=== PATIENT | female | born 1950 | race Caucasian/White ===

== ENCOUNTER 2022-10-25 08:37 | Outpatient (OUT) | payer MEDICARE, SELFPAY ==
[2022-10-25 11:03] LABS: Anion Gap 14.6; BUN Creatinine Ratio 14.5; Calcium 9.1 mg/dL (8.5-10.1); Carbon Dioxide 26.2 mmol/L (21.0-32.0); Chloride 102 mmol/L (98-107); Chol HDL Ratio 3.7; Cholesterol 160 mg/dL (<=200); Estimated GFR (African America >60 (>=60); Estimated GFR (Non-African Ame >60 (>=60); Glucose 114 mg/dL (74-106); HDL Cholesterol 43 mg/dL (40-60); Potassium 3.8 mmol/L (3.5-5.1); Sodium 139 mmol/L (136-145); Triglycerides 154 mg/dL (<=150); VLDL CHOLESTEROL 30.8 mg/dL
== END 2022-10-25 08:38 ==
LOC: LAB 08:38
PROVIDERS: Nurse Practitioner Acute Care
DX: I25.10 Atherosclerotic heart disease of native coronary artery without angina pectoris (principal)
CPT/HCPCS: 36415; 80048; 80061

== ENCOUNTER 2023-03-07 09:18 | Outpatient (OUT) | payer MEDICARE, SELFPAY ==
[2023-03-07 09:55] LABS: Anion Gap 10.8; BUN Creatinine Ratio 12.9; Calcium 8.6 mg/dL (8.5-10.1); Carbon Dioxide 28.4 mmol/L (21.0-32.0); Chloride 103 mmol/L (98-107); Estimated GFR (African America >60 (>=60); Estimated GFR (Non-African Ame >60 (>=60); Glucose 143 mg/dL (74-106); Potassium 4.2 mmol/L (3.5-5.1); Sodium 138 mmol/L (136-145)
== END 2023-03-07 09:19 | disposition home or self-care (01) ==
LOC: LAB 09:20
PROVIDERS: Visit Provider Internal Medicine Cardiovascular Disease
DX: I50.41 Acute combined systolic (congestive) and diastolic (congestive) heart failure (principal)
CPT/HCPCS: 36415; 80048

== ENCOUNTER 2023-03-28 07:06 | Outpatient (RCR) | payer MEDICARE, SELFPAY ==
--- NOTE | 2022-11-05 | CR1_ITS ---
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
--- NOTE | 2022-12-05 13:05 | CR1_ITS ---
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
--- NOTE | 2023-01-01 12:42 | CR1_ITS ---
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
--- NOTE | 2023-01-28 14:36 | CR1_ITS ---
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
--- NOTE | 2023-02-25 08:17 | CR1_ITS ---
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
== END 2023-03-28 12:58 | disposition home or self-care (01) ==
LOC: CR 07:06
DX: I50.9 Heart failure, unspecified (principal)
CPT/HCPCS: 93797; 93798

== ENCOUNTER 2023-03-28 09:56 | Outpatient (OUT) | payer MEDICARE, SELFPAY ==
--- NOTE | 2023-03-28 10:38 | CA_ITS ---
Patient Name: MEDARDO CORONA MR#: [id number] : 1950 Exam Date: 03/28/2023 Ordering Doctor: MADDISON LEMUS ECHOCARDIOGRAM REPORT PROCEDURE: CA ECHO DOPPLER COMPLETE INDICATIONS: Congestive heart failure, h/o myocardial infarct, stent, smoker, hypertension COMPARISON: None. DESCRIPTION: COMPLETE ECHOCARDIOGRAM Real-time transthoracic echocardiography with 2D, M-mode, spectral and color flow Doppler performed. QUALITY: Technical quality was good. LEFT VENTRICLE: Normal chamber size. Borderline left ventricular hypertrophy. LV EF: Global left ventricular systolic function is normal; visually estimated ejection fraction is 55 to 60%. No obvious regional wall motion abnormalities. DIASTOLIC: Unable to assess diastolic function. ATRIAL SEPTUM: Visually appears intact. LEFT ATRIUM: Normal chamber size. RIGHT ATRIUM: Normal chamber size. RIGHT VENTRICLE: Normal chamber size. Normal right ventricular systolic function. TRICUSPID VALVE: Normal mobility and thickness. No regurgitation. Unable to assess right-sided pressures due to lack of measurable tricuspid regurgitation. MITRAL VALVE: Normal mobility and thickness. No evidence of mitral valve stenosis. There is no mitral annular calcification. Trivial mitral regurgitation. AORTIC VALVE: Normal trileaflet appearance. No visible sclerosis. Normal leaflet mobility. No evidence of aortic valve stenosis. No aortic regurgitation. AORTIC ROOT: Normal diameter and appearance. PULMONIC VALVE: Not well visualized. No stenosis. No regurgitation. PERICARDIUM: Anterior free space; trivial effusion versus fat pad. IVC: Collapses with inspirations. CONCLUSION: 1. Global left ventricular systolic function is normal; visually estimated ejection fraction is 55 to 60% 2. Left ventricular wall thickness is increased 3. The right ventricle is normal in size and systolic function 4. Unable to assess diastolic function 5. No significant valvular abnormalities 6. Anterior free space; trivial effusion versus fat pad Adult Echocardiography Procedure Report Left Ventricle LVEDD (3.7 - 5.6 cm): 3.94 cm LVESD (2.2 - 4.0 cm): 2.77 cm LVIVS thickness (0.6 - 1.2 cm): 0.97 cm LVPW thickness (0.5 - 1.0 cm): 1.11 cm e': 0.08 m/s E - e': 4.40 LVOT Max Gradient: 1.32 mm[Hg] LVOT Area (cm2): 0.58 m/s Peak Velocity (LVOT): 0.58 m/s LVOT Diameter 1.96 cm Left Atrium LA Volume Index (2D A2C): 35.24 ml/m2 Left Atrium Systolic Dimension: 2.88 cm Mitral Valve MV E to A Ratio: 0.51, 0.55 Mitral Valve A-Wave Peak Velocity: 0.64 m/s Mitral Valve E-Wave Peak Velocity: 0.34 m/s Right Ventricle Aorta AO Root Diam: 3.73 cm Ascending Ao Diam: 2.96 cm Aortic Valve AoV Area (Peak Willi): 1.88 cm2, 1.88 cm2 Peak Velocity(Antegrade Flow): 0.93 m/s Peak Gradient(Antegrade Flow): 3.43 mm[Hg] Tricuspid Valve Pulmonic Valve Peak Velocity: 0.67 m/s Peak Gradient: 1.97 mm[Hg], 1.60 mm[Hg] Right Atrium Right Atrium Systolic Pressure: 22.32 ml, 22.32 ml Dictated by: Maren Sharma M.D. on 03/31/2023 at 17:15 Approved by: Maren Sharma M.D. on 03/31/2023 at 17:21
== END 2023-03-28 09:57 | disposition home or self-care (01) ==
LOC: CARD 09:56
PROVIDERS: Visit Provider Internal Medicine Cardiovascular Disease
DX: I50.41 Acute combined systolic (congestive) and diastolic (congestive) heart failure (principal)
CPT/HCPCS: 93306

== ENCOUNTER 2024-01-14 09:59 | Outpatient (OUT) | payer MEDICARE, SELFPAY ==
--- NOTE | 2024-01-14 10:01 | VEIN_ITS ---
The [address] [address] Patient Name: MEDARDO CORONA MRN: [id number] date: 1950 Sex: F Assigned Patient Location: Current Patient Location: Accession/Order Number: [id number] Exam Date: 01/14/2024 10:02 Report Date: 01/14/2024 21:13 At the request of: MADDISON LEMUS Procedure: VC SEGMENTAL PRESSURES EXAM: VC SEGMENTAL PRESSURES HISTORY: I73.9 Left leg pain COMPARISON: None. TECHNIQUE: Resting ABIs and segmental limb pressures FINDINGS: Right resting ALONA normal at 1.1. Left resting ALONA in the moderate claudication range 0.62. There is a pressure gradient from the left upper thigh cuff to the brachial cuff suggesting iliac disease. VEIN/VC SEGMENTAL PRESSURES IMPRESSION: 1. 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 2. Normal resting ABIs on the right with no pressure gradients. Electronically authenticated by: Kanchan FALK Date: 01/14/2024 21:13
== END 2024-01-14 10:00 | disposition home or self-care (01) ==
LOC: VC 09:59
PROVIDERS: Visit Provider Internal Medicine Cardiovascular Disease
DX: I73.9 Peripheral vascular disease, unspecified (principal)
CPT/HCPCS: 93923

== ENCOUNTER 2024-05-07 07:10 | Outpatient (RCR) | payer MEDICARE, SELFPAY ==
--- NOTE | 2024-05-13 10:15 | PC.NURSE ---
Called to outreach patient as she has not been seen in [facility] in a few weeks. Patient will be discharged on 05-17-24 due to her allotted amount of time of 12 weeks from admission. A voicemail was left with this information for her.
== END 2024-05-18 12:07 | disposition home or self-care (01) ==
LOC: CR 07:10
PROVIDERS: Visit Provider Internal Medicine Cardiovascular Disease
DX: I70.213 Atherosclerosis of native arteries of extremities with intermittent claudication, bilateral legs (principal)
CPT/HCPCS: 93668

== ENCOUNTER 2024-05-20 11:31 | Outpatient (RCR) | payer MEDICARE, SELFPAY | END 2024-08-06 13:51 | disposition home or self-care (01) | LOC: CR 11:31 | PROVIDERS: Visit Provider Internal Medicine Cardiovascular Disease | DX: I70.213 Atherosclerosis of native arteries of extremities with intermittent claudication, bilateral legs (principal) ==

== ENCOUNTER 2024-07-12 09:07 | Outpatient (OUT) | payer MEDICARE, SELFPAY ==
--- OUTSIDE RECORDS SUMMARY | 2024-07-12 09:30 | XMS_ITS | CCD ---
Author Organization [facility] Inform ion Partnership [facility] Care Team Providers Care Catalyst Manufacturing Operator Name Role Phone Savanna Carter Unavailable Unavailable Unavailable Sjeal Lucas Admitting Unavailable Sejal Lucas Attending Unavailable Savanna Caretr Primary Care UnavailSejal Mendoza Attending Unavailable Sejal Lucas Admitting Unavailable Savanna Carter Primary Care UnavailSHAIKH Fidelia Phipps Admitting Unavailable ABEL ., DR SANTANA Consulting Unavailable SAVANNA CARTER Primary Care Unavailable SHAIKH Fidelia CARROLL Attending Unavailable DR TREY DWYER Consulting Unavailable PAY ., DR HERNANDEZ Consulting Unavailable SHAIKH Fidelia CARROLL Consulting Unavailable LUIS ENRIQUE ARREOLA Consulting Unavailable CROW SHIELDS Consulting Unavailable AMENA HUITRON Consulting Unavailable LILI ERNANDEZ Consulting Unavailable JANES .WALI Consulting Unavailable ADRIANA DAMIAN Consulting Unavailable SAVANNA CARTER Primary Care Unavailable KARL, DR POLANCO Admitting Unavailable KARL, DR POLANCO Attending Unavailable MADDISON LEMUS Attending Unavailable JACKIE MORRIS Attending Unavailable MADDISON LEMUS Attending Unavailable Allergies Allergy Classification Reported Allergen(s) Allergy Type Date of Onset Reaction(s) Facility (2 sources) Azithromycin; 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: [AZITHROMYCIN] Drug Allergy 08-03-2021 [facility] Repository (1 source) Azithromycin Drug Allergy [facility] Repository Medications Completed/Discontinued Medications Medication Drug Class(es) Dates Sig (Normalized) Sig (Original) amLODIPine 10 mg oral tablet (5 sources) Dihydropyridine Calcium Channel Chencho Start: 05-01-2021 take 1 tablet by mouth once daily amLODIPine Besylate 10 MG Oral Tablet TAKE 1 TABLET DAILY DIRECTED. Quantity: 90 Refills: 3 Ordered: 01-May-2021 DO Start : 01-May-2021 Active aspirin 81 mg delayed release oral tablet (5 sources) Platelet Aggregation Inhibitor, Nonsteroidal Anti-inflammatory Drug take 1 tablet by mouth once daily Aspirin EC 81 MG Oral Tablet Delayed Release TAKE 1 TABLET DAILY. Quantity: 90 Refills: 3 Ordered: 06-Jun-2021 DO Active atorvastatin 80 mg oral tablet (6 sources) HMG-CoA Reductase Inhibitor Start: 05-01-2021 Atorvastatin Calcium 80 MG Oral Tablet Quantity: 90 Refills: 0 Ordered: 01-May-2021 DO Start : 01-May-2021 Complete take 1 tablet by mouth once lawrence y Lipitor 40 MG Oral Tablet TAKE 1 TABLET DAILY. Quantity: 0 Refills: 0 Ordered: 06-Jun-2021 DO Active carvedilol 25 mg oral tablet (5 sources) alpha-Adrenergic Chencho, beta-Adrenergic Chencho Start: 05-01-2021 take 1 tablet by mouth twice daily Carvedilol 25 MG Oral Tablet TAKE 1 TABLET TWICE DAILY. Quantity: 180 Refills: 3 Ordered: 01-May-2021 DO Start : 01-May-2021 Active clopidogrel 75 mg oral tablet (4 sources) P2Y12 Platelet Inhibitor Start: 10-04-2020 take 1 tablet by mouth once daily Clopidogrel Bisulfate 75 MG Oral Tablet TAKE 1 TABLET DAILY (STOP SAMSON/NEW START) Quantity: 90 Refills: 3 Ordered: 30-Oct-2021 Iglesia Lucas DO Start : 04-Oct-2020 Active hydroCHLOROthiazide 25 mg / lisinopril 20 mg oral tablet (5 sources) Thiazide Diuretic, Angiotensin Converting Enzyme Inhibitor Start: 05-01-2021 take 1 tablet by mouth once daily Lisinopril-hydroC HLOROthiazide 20-25 MG Oral Tablet TAKE 1 TABLET DAILY. Quantity: 90 Refills: 0 Ordered: 01-May-2021 DO Start : 01-May-2021 Active 24 hr metFORMIN hydrochloride 500 mg extended release oral tablet (1 source) Biguanide Start: 02-03-2020 take 1 tablet by mouth every twenty-fou r hours metFORMIN HCl ER 500 MG Oral Tablet Extended Release 24 Hour Quantity: 90 Refills: 0 Ordered: 16-Nov-2020 DO Start : 03-Feb-2020 Complete nitroglycerin 0.4 mg sublingual tablet (5 sources) Nitrate Vasodilator Start: 06-06-2021 Nitroglycerin 0.4 MG Sublingual Tablet Sublingual PLACE 1 TABLET UNDER THE TONGUE EVERY 5 MINUTES FOR UP TO 3 DOSES NEEDED FOR CHEST PAIN.CALL 911 IF PAIN PERSISTS. Quantity: 25 Refills: 3 Ordered: 06-Jun-2021 Iglesia Lucas DO Start : 06-Jun-2021 Active ticagrelor 90 mg oral tablet (1 source) Start: 02-07-2020 Brilinta 90 MG Oral Tablet Quantity: 180 Refills: 0 Ordered: 18-Aug-2020 DO Start : 07-Feb-2020 Complete Problems Problem Classification Problem Date Documented Date Episodic/Chronic Chronic obstructive pulmonary disease and bronchiectasis (6 sources) Chronic obstructive lung disease; 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: [Chronic airway obstruction, not elsewhere classified] Onset: 10-01-2022 Chronic Congestive heart failure; nonhypertensive (5 sources) Acute on chronic systolic (congestive) heart failure; 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: [Chronic systolic (congestive) heart failure] Onset: 10-01-2022 Chronic Coronary atherosclerosis and other heart disease (15 sources) Coronary atherosclerosis; 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: [Coronary atherosclerosis of [place] coronary artery] Onset: 10-01-2022 Chronic Coronary atherosclerosis and other heart disease (1 source) Coronary atherosclerosis and other heart disease; 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: [I70.213 - Atherosclerosis of [place] arteries of extremities with intermittent claudication, bilateral legs] Onset: 08-07-2021 Diabetes mellitus without complication (5 sources) Diabetes mellitus; 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: [Diabetes mellitus without mention of complication, type II or unspecified type, not stated as uncontrolled] Chronic Disorders of lipid metabolism (8 sources) Hyperlipidemia; 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: [Other and unspecified hyperlipidemia] Onset: 10-01-2022 Chronic Essential hypertension (7 sources) Hypertensive disorder; 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: [Unspecified essential hypertension] Onset: 04-08-2023 Chronic Hypertension with complications and secondary hypertension (4 sources) Hypertensive heart disease with heart failure; 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: [Hypertensive emergency] Onset: 09-17-2022 Chronic Immunizations and screening for infectious disease (5 sources) Patient encounter status; 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: [Other specified vaccination] Episodic Other aftercare (1 source) 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; 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: [COUNTER WAITER CURRENT USE OF ASPIRIN] Onset: 10-01-2022 Episodic Other aftercare (1 source) 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 truck driver (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) drug therapy; 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: [OTH COUNTER WAITER CURRENT DRUG THERAPY] Onset: 10-01-2022 Episodic Other liver diseases (1 source) Abnormal levels of other serum enzymes; 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: [ABNORMAL LEVELS OTHER SERUM ENZYMES] Onset: 10-01-2022 Episodic Other nutritional; endocrine; and metabolic disorders (1 source) Obesity, unspecified; 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: [OBESITY UNSPECIFIED] Onset: 10-01-2022 Chronic Other nutritional; endocrine; and metabolic disorders (5 sources) Overweight in adulthood with body mass index of 25 or more but less than 30; 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: [Overweight] Episodic Peripheral and visceral atherosclerosis (12 sources) Peripheral vascular disease; 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: [Peripheral vascular disease, unspecified] Onset: 10-01-2022 Chronic Respiratory failure; insufficiency; arrest (adult) (1 source) Acute respiratory failure, unspecified whether with hypoxia or hypercapnia; 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: [AC RESP FAIL UNS HYPOX/HYPERCAPNIA] Onset: 10-01-2022 Episodic Substance-related disorders (8 sources) Smokes tobacco daily; 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: [Tobacco use disorder] Onset: 10-01-2022 Chronic Comment on above: 5 cigs a day; Unclassified (1 source) Z01.812 - Encounter for preprocedural laboratory examination; 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: [Z01.812 - Encounter for preprocedural laboratory examination] Onset: 08-03-2021 Results Test Name Value Interpretation Reference Range Facility Office Visiton 01-07-2024 Follow-up visit [id number] Jimmie Deng 1950 F Date Provider Department Center 01/07/2024 [id number]-MADDISON LEMUS ANGELINA Rivera Family History Problem Relation Age of Onset Diabetes Mother Heart attack Father Stroke Father Other Father Family Status - Relation Status Age at Mother Father Level of Service:49837 CO OFFICE/OUTPATIENT ESTABLISHED MOD MDM 30 MIN Normal [facility] Office Visiton 04-08-2023 Follow-up visit [id number] Jimmie Deng 1950 F Date Provider Department Center 04/08/2023 [id number] MORRIS ANGELINA Rivera Family History Problem Relation Age of Onset Diabetes Mother Heart attack Father Stroke Father Other Father Family Status - Relation Status Age at Mother Father Level of Service:00191 CO OFFICE/OUTPATIENT ESTABLISHED MOD MDM 30-39 MIN Normal [facility] Office Visiton 02-25-2023 Follow-up visit [id number] Jimmie Deng 1950 F Date Provider Department Center 02/25/2023 3848-MADDISON LEMUS [facility] Family History Problem Relation Age of Onset Diabetes Mother Heart attack Father Stroke Father Other Father Family Status - Relation Status Age at Mother Father Level of Service:64319 CO OFFICE/OUTPATIENT ESTABLISHED MOD MDM 30-39 MIN Normal [facility] BNPon 09-19-2022 Natriuretic peptide B (Bld) [Mass/Vol] 2398.0 pg/mL Critically high <=900.0 [facility] Comment on above: Performed By: #### B MP, BNP #### [facility] [address] [place] [address] Dr. Gina Schmitz CBC AUTO DIFFon 09-19-2022 BASO # 0.0 103/ul Normal 0.0-0.1 [facility] Comment on above: Performed By: #### B MP, HSTROPN, BNP #### [facility] [address] [address] [address] Gina Schmitz Basophils/100 WBC (Bld) 0.2 % Normal 0.2-2.0 [facility] Comment on above: Performed By: #### B MP, HSTROPN, BNP #### [facility] [address] [place] [address] Dr. Gina Schmitz EO # 0.0 103/ul Normal 0.0-0.7 [facility] Comment on above: Performed By: #### B MP, HSTROPN, BNP #### [facility] [address] [address] [address] Gina Schmitz Eosinophils/100 WBC (Bld) 0.6 % Critically low 0.9-7.0 [facility] Comment on above: Performed By: #### B MP, HSTROPN, BNP #### [facility] [address] [address] [address] Gina Schmitz Erythrocyte distribution width (RBC) [Ratio] 14.8 % Normal 11.0-15.0 [facility] Comment on above: Performed By: #### B MP, HSTROPN, BNP #### [facility] [address] [place] [address] Dr. Gina Schmitz Hematocrit (Bld) [Volume fraction] 43.0 % Normal 36.0-48.0 [facility] Comment on above: Performed By: #### B MP, HSTROPN, BNP #### [facility] [address] [place] [address] Dr. Gina Schmitz Hemoglobin (Bld) [Mass/Vol] 13.9 g/dL Normal 12.0-16.0 [facility] Comment on above: Performed By: #### B MP, HSTROPN, BNP #### [facility] [address] [place] [address] Dr. Gina Schmitz IG # 0.02 10e3/ul Normal 0.00-0.03 [facility] Comment on above: Performed By: #### B MP, HSTROPN, BNP #### [facility] [address] [place] [address] Dr. Gina Schmitz IG % 0.4 % Normal 0.0-0.5 [facility] Comment on above: Performed By: #### B MP, HSTROPN, BNP #### [facility] [address] [place] [address] Dr. Gina Schmitz LYMPH # 1.5 103/ul Normal 1.2-3.8 [facility] Comment on above: Performed By: #### B MP, HSTROPN, BNP #### [facility] [address] [place] [address] Dr. Gina Schmitz Lymphocytes/100 WBC (Bld) 28.2 % Normal 20.5-60.0 [facility] Comment on above: Performed By: #### B MP, HSTROPN, BNP #### [facility] [address] [place] [address] Dr. Gina Schmitz MANUAL DIFF REQ NO Normal [facility] Comment on above: Performed By: #### B MP, HSTROPN, BNP #### [facility] [address] [place] [address] Dr. Gina Schmitz MCH (RBC) [Entitic mass] 26.7 pg Normal 26.7-34.0 [facility] Comment on above: Performed By: #### B MP, HSTROPN, BNP #### [facility] [address] [place] [address] Dr. Gina Schmitz MCHC (RBC) [Mass/Vol] 32.3 g/dL Normal 29.9-35.2 [facility] Comment on above: Performed By: #### B MP, HSTROPN, BNP #### [facility] [address] [place] [address] Dr. Gina Schmitz MCV (RBC) [Entitic vol] 82.7 fL Normal 81.0-99.0 [facility] Comment on above: Performed By: #### B MP, HSTROPN, BNP #### [facility] [address] [place] [address] Dr. Gina Schmitz MONO # 0.6 103/ul Normal 0.3-0.8 [facility] Comment on above: Performed By: #### B MP, HSTROPN, BNP #### [facility] [address] [place] [address] Dr. Gina Schmitz Monocytes/100 WBC (Bld) 10.3 % Normal 1.7-12.0 [facility] Comment on above: Performed By: #### B MP, HSTROPN, BNP #### [facility] [address] [place] [address] Dr. Gina Schmitz NEUT # 3.2 103/ul Normal 1.4-6.5 [facility] Comment on above: Performed By: #### B MP, HSTROPN, BNP #### [facility] [address] [place] [address] Dr. Gina Schmitz Neutrophils/100 WBC (Bld) 60.3 % Normal 43.0-75.0 [facility] Comment on above: Performed By: #### B MP, HSTROPN, BNP #### [facility] [address] [place] [address] Dr. Gina Schmitz Platelet mean volume (Bld) [Entitic vol] 9.6 fL Normal 9.5-13.5 [facility] Comment on above: Performed By: #### B MONI HSTROPN, BNP #### [facility] [address] [address] [address] Gina Schmitz PLT 229 103/ul Normal 150-450 [facility] Comment on above: Performed By: #### B MONI HSTROPN, BNP #### [facility] [address] [address] [address] Gina Schmitz RBC 5.20 106/ul Normal 4.20-5.40 [facility] Comment on above: Performed By: #### B MONI HSTROPN, BNP #### [facility] [address] [place] [address] Dr. Gina Schmitz WBC 5.4 103/ul Normal 4.0-11.0 [facility] Comment on above: Performed By: #### B MONI HSTROPN, BNP #### [facility] [address] [place] [address] Dr. Gina Schmitz POINT OF CARE GLUCOSEon Glucose [Mass/Vol] 221 mg/dL Critically high 74-106 [facility] Comment on above: Performed By: #### B MONI HSTROPN, BNP #### [facility] [address] [place] [address] Dr. Gina Schmitz PROF CHEM 8 (BAS METB)on Anion gap [Moles/Vol] 10.9 mmol/L Normal [facility] Comment on above: Performed By: #### B MP, BNP #### [facility] [address] [address] [address] Gina Schmitz Calcium [Mass/Vol] 8.8 mg/dL Normal 8.5-10.1 [facility] Comment on above: Performed By: #### B MONI, BNP #### [facility] [address] [place] [address] Dr. Gina Schmitz Chloride [Moles/Vol] 97 mmol/L Critically low 98-107 [facility] Comment on above: Performed By: #### B MP, BNP #### [facility] [address] [address] [address] Gina Schmitz CO2 [Moles/Vol] 33.1 mmol/L Critically high 21.0-32.0 [facility] Comment on above: Performed By: #### B MP, BNP #### [facility] [address] [address] [address] Gina Schmitz Creatinine [Mass/Vol] 0.97 mg/dL Normal 0.55-1.02 [facility] Comment on above: Performed By: #### B MP, BNP #### [facility] [address] [place] [address] Dr. Gina Schmitz EGFR-AF ALGERIAN >60 Normal >=60 [facility] Comment on above: Performed By: #### B MP, BNP #### [facility] [address] [place] [address] Dr. Gina Schmitz EGFR-NON AF ALGERIAN 57 mL/min/1.73m2 Critically low >=60 [facility] Comment on above: Performed By: #### B MP, BNP #### [facility] [address] [place] [address] Dr. Gina Schmitz Glucose [Mass/Vol] 99 mg/dL Normal 74-106 [facility] Comment on above: Performed By: #### B MP, BNP #### [facility] [address] [place] [address] Dr. Gina Schmitz Potassium [Moles/Vol] 3.0 mmol/L Critically low 3.5-5.1 [facility] Comment on above: Performed By: #### B MP, BNP #### [facility] [address] [place] [address] Dr. Gina Schmitz Sodium [Moles/Vol] 138 mmol/L Normal 136-145 [facility] Comment on above: Performed By: #### B MP, BNP #### [facility] [address] [place] [address] Dr. Gina Schmitz Urea nitrogen [Mass/Vol] 29.0 mg/dL Critically high 7.0-18.0 [facility] Comment on above: Performed By: #### B MP, BNP #### [facility] [address] [place] [address] Dr. Gina Schmitz Urea nitrogen/Creatinine [Mass ratio] 29.9 mg/mg Normal [facility] Comment on above: Performed By: #### B MP, BNP #### [facility] [address] [place] [address] Dr. Gina Schmitz XR CHEST 1 Von 09-19-2022 XR CHEST 1 V EXAM: XR CHEST 1 V a t 0951 hours HISTORY: shortness of breath COMPARISON: 09/16/2022 TECHNIQUE: AP upright portable chest x-ray FINDINGS: There is been interval improved aeration at both lung bases. The right lung base is now clear. The left lung base is partially obscured. No acute infiltrate, effusion or pneumothorax is readily identified. The heart is enlarged with improvement of the vascular congestion. The osseous structures are grossly intact. IMPRESSION: Improved aeration at both lung bases, and improvement of the vascular congestion. A definite infiltrate is not identified, although the left lung base is partially obscured by the cardiac silhouette. Cardiac enlargement without cardiac decompensation is noted. Electronically authenticated by: CROW SHIELDS Date: 2022-09-19 13:42 Normal [facility] BNPon 09-18-2022 Natriuretic peptide B (Bld) [Mass/Vol] 3849.0 pg/mL Critically high <=900.0 [facility] Comment on above: Performed By: #### B MP, HSTROPN, BNP #### [facility] [address] [place] [address] Dr. Gina Schmitz CBC AUTO DIFFon 09-18-2022 BASO # 0.0 103/ul Normal 0.0-0.1 [facility] Comment on above: Performed By: #### C BC #### [facility] [address] [place] [address] Dr. Gina Schmitz Basophils/100 WBC (Bld) 0.1 % Critically low 0.2-2.0 [facility] Comment on above: Performed By: #### C BC #### [facility] [address] [place] [address] Dr. Gina Schmitz EO # 0.0 103/ul Normal 0.0-0.7 [facility] Comment on above: Performed By: #### C BC #### [facility] [address] [place] [address] Dr. Gina Schmitz Eosinophils/100 WBC (Bld) 0.3 % Critically low 0.9-7.0 [facility] Comment on above: Performed By: #### C BC #### [facility] [address] [place] [address] Dr. Gina Schmitz Erythrocyte distribution width (RBC) [Ratio] 14.9 % Normal 11.0-15.0 [facility] Comment on above: Performed By: #### C BC #### [facility] [address] [place] [address] Dr. Gina Schmitz Hematocrit (Bld) [Volume fraction] 41.3 % Normal 36.0-48.0 [facility] Comment on above: Performed By: #### C BC #### [facility] [address] [place] [address] Dr. Gina Schmitz Hemoglobin (Bld) [Mass/Vol] 13.1 g/dL Normal 12.0-16.0 [facility] Comment on above: Performed By: #### C BC #### [facility] [address] [place] [address] Dr. Gina Schmitz IG # 0.03 10e3/ul Normal 0.00-0.03 [facility] Comment on above: Performed By: #### C BC #### [facility] [address] [place] [address] Dr. Gina Schmitz IG % 0.4 % Normal 0.0-0.5 [facility] Comment on above: Performed By: #### C BC #### [facility] [address] [place] [address] Dr. Gina Schmitz LYMPH # 1.3 103/ul Normal 1.2-3.8 [facility] Comment on above: Performed By: #### C BC #### [facility] [address] [place] [address] Dr. Gina Schmitz Lymphocytes/100 WBC (Bld) 19.3 % Critically low 20.5-60.0 [facility] Comment on above: Performed By: #### C BC #### [facility] [address] [place] [address] Dr. Gina Schmitz MANUAL DIFF REQ NO Normal [facility] Comment on above: Performed By: #### C BC #### [facility] [address] [place] [address] Dr. Gina Schmitz MCH (RBC) [Entitic mass] 26.8 pg Normal 26.7-34.0 [facility] Comment on above: Performed By: #### C BC #### [facility] [address] [place] [address] Dr. Gina Schmitz MCHC (RBC) [Mass/Vol] 31.7 g/dL Normal 29.9-35.2 [facility] Comment on above: Performed By: #### C BC #### [facility] [address] [place] [address] Dr. Gina Schmitz MCV (RBC) [Entitic vol] 84.5 fL Normal 81.0-99.0 [facility] Comment on above: Performed By: #### C BC #### [facility] [address] [place] [address] Dr. Gina Schmitz MONO # 0.6 103/ul Normal 0.3-0.8 [facility] Comment on above: Performed By: #### C BC #### [facility] [address] [place] [address] Dr. Gina Schmitz Monocytes/100 WBC (Bld) 9.3 % Normal 1.7-12.0 [facility] Comment on above: Performed By: #### C BC #### [facility] [address] [place] [address] Dr. Gina Schmitz NEUT # 4.9 103/ul Normal 1.4-6.5 [facility] Comment on above: Performed By: #### C BC #### [facility] [address] [place] [address] Dr. Gina Schmitz Neutrophils/100 WBC (Bld) 70.6 % Normal 43.0-75.0 [facility] Comment on above: Performed By: #### C BC #### [facility] [address] [place] [address] Dr. Gina Schmitz Platelet mean volume (Bld) [Entitic vol] 9.9 fL Normal 9.5-13.5 [facility] Comment on above: Performed By: #### C BC #### [facility] [address] [place] [address] Dr. Gina Schmitz PLT 194 103/ul Normal 150-450 [facility] Comment on above: Performed By: #### C BC #### [facility] [address] [place] [address] Dr. Gina Schmitz RBC 4.89 106/ul Normal 4.20-5.40 [facility] Comment on above: Performed By: #### C BC #### [facility] [address] [place] [address] Dr. Gina Schmitz WBC 6.9 103/ul Normal 4.0-11.0 [facility] Comment on above: Performed By: #### C BC #### [facility] [address] [place] [address] Dr. Gina Schmitz GLYCOHEMOGLOBIN A1Con 2022 ADA RECOMMENDATION SEE BELOW Normal [facility] Comment on above: Result Comment: ADA RECOMMENDED LIMIT 4.0 - 6.0 ADA THERAPEUTIC TARGET < 7.0 ACTION SUGGESTED > 7.0 Performed By: #### B MONI HSTROPN, BNP #### [facility] [address] [place] [address] Dr. Gina Schmitz Glucose [Mass/Vol] 137 mg/dL Normal [facility] Comment on above: Performed By: #### B MONI HSTROPN, BNP #### [facility] [address] [place] [address] Dr. Gina Schmitz HbA1c (Bld) [Mass fraction] 6.4 % Critically high 4.5-6.2 [facility] Comment on above: Performed By: #### B MONI HSTROPN, BNP #### [facility] [address] [address] [address] Gina Schmitz POINT OF CARE GLUCOSEon Glucose [Mass/Vol] 195 mg/dL Critically high 74-106 [facility] Comment on above: Performed By: #### P OCGLUC #### [facility] [address] [place] [address] Dr. Gina Schmitz Glucose [Mass/Vol] 102 mg/dL Normal 74-106 [facility] Comment on above: Performed By: #### B MP, HSTROPN, BNP #### [facility] [address] [address] [address] Gina Schmitz Glucose [Mass/Vol] 219 mg/dL Critically high 74-106 [facility] Comment on above: Performed By: #### B MP, HSTROPN, BNP #### [facility] [address] [place] [address] Dr. Gina Schmitz PROF CHEM 8 (BAS METB)on Anion gap [Moles/Vol] 12.4 mmol/L Normal [facility] Comment on above: Performed By: #### B MONI HSTROPN, BNP #### [facility] [address] [address] [address] Gina Schmitz Calcium [Mass/Vol] 8.7 mg/dL Normal 8.5-10.1 [facility] Comment on above: Performed By: #### B MP, HSTROPN, BNP #### [facility] [address] [place] [address] Dr. Gina Schmitz Chloride [Moles/Vol] 99 mmol/L Normal 98-107 [facility] Comment on above: Performed By: #### B MP, HSTROPN, BNP #### [facility] [address] [place] [address] Dr. Gina Schmitz CO2 [Moles/Vol] 27.6 mmol/L Normal 21.0-32.0 [facility] Comment on above: Performed By: #### B MP, HSTROPN, BNP #### [facility] [address] [address] [address] Gina Schmitz Creatinine [Mass/Vol] 0.95 mg/dL Normal 0.55-1.02 [facility] Comment on above: Performed By: #### B MP, HSTROPN, BNP #### [facility] [address] [address] [address] Gina Schmitz EGFR-AF ALGERIAN >60 Normal >=60 [facility] Comment on above: Performed By: #### B MP, HSTROPN, BNP #### [facility] [address] [address] [address] Gina Schmitz EGFR-NON AF ALGERIAN 58 mL/min/1.73m2 Critically low >=60 [facility] Comment on above: Performed By: #### B MP, HSTROPN, BNP #### [facility] [address] [place] [address] Dr. Gina Schmitz Glucose [Mass/Vol] 149 mg/dL Critically high 74-106 [facility] Comment on above: Performed By: #### B MP, HSTROPN, BNP #### [facility] [address] [address] [address] Gina Schmitz Potassium [Moles/Vol] 4.0 mmol/L Normal 3.5-5.1 [facility] Comment on above: Performed By: #### B MP, HSTROPN, BNP #### [facility] [address] [address] [address] Gina Schmitz Sodium [Moles/Vol] 135 mmol/L Critically low 136-145 [facility] Comment on above: Performed By: #### B MP, HSTROPN, BNP #### [facility] [address] [address] [address] Gina Schmitz Urea nitrogen [Mass/Vol] 32.0 mg/dL Critically high 7.0-18.0 [facility] Comment on above: Performed By: #### B MP, HSTROPN, BNP #### [facility] [address] [address] [address] Gina Schmitz Urea nitrogen/Creatinine [Mass ratio] 33.7 mg/mg Normal [facility] Comment on above: Performed By: #### B MP, HSTROPN, BNP #### [facility] [address] [place] [address] Dr. Gina Schmitz BNPon 09-17-2022 Natriuretic peptide B (Bld) [Mass/Vol] 00593.0 pg/mL Critically high <=900.0 [facility] Comment on above: Performed By: #### B MP, HSTROPN, BNP #### [facility] [address] [place] [address] Dr. Gina Schmitz CARDIAC SHEYLA 3-6on 3 CK [Catalytic activity/Vol] 58 U/L Normal 26-192 [facility] Comment on above: Performed By: #### B MP, HSTROPN, BNP #### [facility] [address] [place] [address] Dr. Gina Schmitz CK.MB [Mass/Vol] 2.73 ng/mL Normal <=3.60 [facility] Comment on above: Performed By: #### B MP, HSTROPN, BNP #### [facility] [address] [place] [address] Dr. Gina Schmitz HSTROP 46.4 pg/mL Normal 4.0-51.3 [facility] Comment on above: Result Comment: CUT- OFF POINTS HAVE BEEN ESTABLISHED BASED ON THE FOURTH UNIVERSAL DEFINITIONS OF MYOCARDIAL INFARCTION. THE UPPER REFERENCE LIMIT (URL) OF TROPONIN, DEFINED THE 99TH PERCENTILE OF cTnI DISTRIBUTION IN A REFERENCE POPULATION, HAS BEEN CONFIRMED THE DECISION THRESHOLD FOR MD DIAGNOSIS. Performed By: #### B MP, HSTROPN, BNP #### [facility] [address] [place] [address] Dr. Gina Schmitz CBC AUTO DIFFon 09-17-2022 BASO # 0.0 103/ul Normal 0.0-0.1 [facility] Comment on above: Performed By: #### B MP, HSTROPN, BNP #### [facility] [address] [place] [address] Dr. Gina Schmitz Basophils/100 WBC (Bld) 0.0 % Critically low 0.2-2.0 [facility] Comment on above: Performed By: #### B MP, HSTROPN, BNP #### [facility] [address] [place] [address] Dr. Gina Schmitz EO # 0.0 103/ul Normal 0.0-0.7 [facility] Comment on above: Performed By: #### B MP, HSTROPN, BNP #### [facility] [address] [place] [address] Dr. Gina Schmitz Eosinophils/100 WBC (Bld) 0.2 % Critically low 0.9-7.0 [facility] Comment on above: Performed By: #### B MP, HSTROPN, BNP #### [facility] [address] [place] [address] Dr. Gina Schmitz Erythrocyte distribution width (RBC) [Ratio] 15.1 % Critically high 11.0-15.0 [facility] Comment on above: Performed By: #### B MP, HSTROPN, BNP #### [facility] [address] [place] [address] Dr. Gina Schmitz Hematocrit (Bld) [Volume fraction] 41.4 % Normal 36.0-48.0 [facility] Comment on above: Performed By: #### B MP, HSTROPN, BNP #### [facility] [address] [place] [address] Dr. Gina Schmitz Hemoglobin (Bld) [Mass/Vol] 13.2 g/dL Normal 12.0-16.0 [facility] Comment on above: Performed By: #### B MP, HSTROPN, BNP #### [facility] [address] [place] [address] Dr. Gina Schmitz IG # 0.03 10e3/ul Normal 0.00-0.03 [facility] Comment on above: Performed By: #### B MP, HSTROPN, BNP #### [facility] [address] [place] [address] Dr. Gina Schmitz IG % 0.5 % Normal 0.0-0.5 [facility] Comment on above: Performed By: #### B MP, HSTROPN, BNP #### [facility] [address] [place] [address] Dr. Gina Schmitz LYMPH # 0.6 103/ul Critically low 1.2-3.8 [facility] Comment on above: Performed By: #### B MP, HSTROPN, BNP #### [facility] [address] [place] [address] Dr. Gina Schmitz Lymphocytes/100 WBC (Bld) 9.8 % Critically low 20.5-60.0 [facility] Comment on above: Performed By: #### B MP, HSTROPN, BNP #### [facility] [address] [place] [address] Dr. Gina Schmitz MANUAL DIFF REQ NO Normal [facility] Comment on above: Performed By: #### B MP, HSTROPN, BNP #### [facility] [address] [place] [address] Dr. Gina Schmitz MCH (RBC) [Entitic mass] 26.9 pg Normal 26.7-34.0 [facility] Comment on above: Performed By: #### B MP, HSTROPN, BNP #### [facility] [address] [place] [address] Dr. Gina Schmitz MCHC (RBC) [Mass/Vol] 31.9 g/dL Normal 29.9-35.2 [facility] Comment on above: Performed By: #### B MP, HSTROPN, BNP #### [facility] [address] [place] [address] Dr. Gina Schmitz MCV (RBC) [Entitic vol] 84.3 fL Normal 81.0-99.0 [facility] Comment on above: Performed By: #### B MP, HSTROPN, BNP #### [facility] [address] [place] [address] Dr. Gina Schmitz MONO # 0.2 103/ul Critically low 0.3-0.8 [facility] Comment on above: Performed By: #### B MP, HSTROPN, BNP #### [facility] [address] [place] [address] Dr. Gina Schmitz Monocytes/100 WBC (Bld) 3.7 % Normal 1.7-12.0 [facility] Comment on above: Performed By: #### B MP, HSTROPN, BNP #### [facility] [address] [place] [address] Dr. Gina Schmitz NEUT # 5.1 103/ul Normal 1.4-6.5 [facility] Comment on above: Performed By: #### B MP, HSTROPN, BNP #### [facility] [address] [place] [address] Dr. Gina Schmitz Neutrophils/100 WBC (Bld) 85.8 % Critically high 43.0-75.0 [facility] Comment on above: Performed By: #### B MP, HSTROPN, BNP #### [facility] [address] [place] [address] Dr. Gina Schmitz Platelet mean volume (Bld) [Entitic vol] 10.4 fL Normal 9.5-13.5 [facility] Comment on above: Performed By: #### B MP, HSTROPN, BNP #### [facility] [address] [place] [address] Dr. Gina Schmitz PLT 179 103/ul Normal 150-450 [facility] Comment on above: Performed By: #### B MP, HSTROPN, BNP #### [facility] [address] [place] [address] Dr. Gina Schmitz RBC 4.91 106/ul Normal 4.20-5.40 [facility] Comment on above: Performed By: #### B MP, HSTROPN, BNP #### [facility] [address] [place] [address] Dr. Gina Schmitz WBC 5.9 103/ul Normal 4.0-11.0 [facility] Comment on above: Performed By: #### B MP, HSTROPN, BNP #### [facility] [address] [place] [address] Dr. Gina Schmitz ECHOCARDIO M/2D COMPLETEon 0 5-02-2023 ECHOCARDIO M/2D COMPLETE Patient: JIMMIE DENG Exam Date: 09/17/2022 : 1950 Gender:F Ordering : AMENA HUITRON Admission #: [id number] Family : SHAIKH Abilio CARROLL . Order #: [id number] CLICK HERE TO VIEW EXAM ECHOCARDIOGRAM REPORT PROCEDURE: CARDIO PULMONARY ECHOCARDIO M/2D COMP INDICATIONS: CHF COMPARISON: None. DESCRIPTION: COMPLETE ECHOCARDIOGRAM Real-time transthoracic echocardiography with 2D, M-mode, spectral and color flow Doppler performed. QUALITY: Technical quality was good. LEFT VENTRICLE: Normal chamber size. Thickened septal wall. D-shaped septum; suggestive of right ventricular pressure and volume overload. LV EF: Global left ventricular systolic function is severely decreased. Visual estimation of left ventricular ejection fraction is 20%. Global hypokinesis. DIASTOLIC: Grade 2, moderate diastolic dysfunction. ATRIAL SEPTUM: Inadequately seen. LEFT ATRIUM: Moderate dilatation. RIGHT ATRIUM: Moderate dilatation. RIGHT VENTRICLE: Moderate dilatation. Decreased right ventricular systolic function. TRICUSPID VALVE: Normal mobility and thickness. Moderate regurgitation. Moderate pulmonary hypertension. RVSP 49mmHg MITRAL VALVE: Normal mobility and thickness. No mitral valve prolapse. No evidence of mitral valve stenosis. There is no mitral annular calcification. Moderate to severe mitral regurgitation. AORTIC VALVE: Normal trileaflet appearance. No visible sclerosis. Normal leaflet mobility. No evidence of aortic valve stenosis. No aortic regurgitation. AORTIC ROOT: Normal diameter and appearance. PULMONIC VALVE: Normal thickness and mobility. No stenosis. Trivial regurgitation. PERICARDIUM: No evidence of pericardial effusion. IVC: Mild dilatation measuring 2.2cm with no collapse. PLEURA: Moderate pleural effusion. CONCLUSION: 1. Global left ventricular systolic function is severely decreased. Visual estimation of left ventricular ejection fraction is 20%. Global hypokinesis. 2. D-shaped septum; suggestive of right ventricular pressure and volume overload 3. Moderate, grade 2 diastolic dysfunction 4. Biatrial enlargement 5. The right ventricle is moderately dilated with reduced systolic function. 6. Moderate tricuspid regurgitation; moderately elevated right-sided pressures. 7. Moderate to severe mitral regurgitation. 8. A pleural effusion is seen. Adult Echocardiography Procedure Report Left Ventricle LVEDD (3.7 - 5.6 cm): 5.13 cm LVESD (2.2 - 4.0 cm): 4.84 cm LVIVS thickness (0.6 - 1.2 cm): 1.46 cm LVPW thickness (0.5 - 1.0 cm): 0.91 cm e': 0.05 m/s E - e': 6.99 LVOT Max Gradient: 1.29 mm[Hg], 1.56 mm[Hg] Peak Velocity (LVOT): 0.57 m/s, 0.62 m/s Mean Velocity (LVOT): 0.41 m/s, 0.37 m/s LVOT Diameter 2.23 cm Left Ventricular Ejection Fraction: 12.64 %, 12.64 % Left Atrium Left Atrium Systolic Dimension: 4.64 cm Mitral Valve MV E to A Ratio: 1.78, 0.00 Mitral Valve A-Wave Peak Velocity: 0.38 m/s, 0.75 m/s Mitral Valve E-Wave Peak Velocity: 0.67 m/s, 0.00 m/s Right Ventricle RV Internal Diastolic Dimension: 4.64 cm Aorta AO Root Diam: 3.29 cm Ascending Ao Diam: 3.38 cm Aortic Valve AoV Area (Peak Willi): 2.35 cm2, 2.24 cm2 AoV Area (VTI): 2.93 cm2, 2.68 cm2 Peak Velocity(Antegrade Flow): 0.99 m/s Peak Gradient(Antegrade Flow): 3.90 mm[Hg] Mean Velocity(Antegrade Flow): 0.63 m/s Mean Gradient(Antegrade Flow): 1.81 mm[Hg] Velocity Time Integral: 13.89 cm Tricuspid Valve Peak Velocity (Regurgitant Flow): 2.71 m/s, 2.87 m/s, 2.91 m/s Peak Velocity: 0.68 m/s Pulmonic Valve Peak Velocity: 0.57 m/s, 0.67 m/s Peak Gradient: 1.30 mm[Hg], 1.77 mm[Hg] Right Atrium Right Atrium Systolic Pressure: 87.15 ml, 87.15 ml Dictated by: Maren Sharma M.D. on 09/19/2022 at 13:02 Approved by: Maren Sharma M.D. on 09/19/2022 at 13:08 Normal [facility] POINT OF CARE GLUCOSEon 05-0 Glucose [Mass/Vol] 195 mg/dL Critically high 74-106 [facility] Comment on above: Performed By: #### B MONI HSTROPN, BNP #### [facility] [address] [address] [address] Gina Schmitz Glucose [Mass/Vol] 152 mg/dL Critically high 74-106 [facility] Comment on above: Performed By: #### P OCGLUC #### [facility] [address] [address] [address] Gina Schmitz Glucose [Mass/Vol] 192 mg/dL Critically high -106 [facility] Comment on above: Performed By: #### P OCGLUC #### [facility] [address] [place] [address] Dr. Gina Schmitz PROF CHEM 8 (BAS METB)on Anion gap [Moles/Vol] 11.2 mmol/L Normal [facility] Comment on above: Performed By: #### B MONI HSTROPN, BNP #### [facility] [address] [place] [address] Dr. Gina Schmitz Calcium [Mass/Vol] 8.7 mg/dL Normal 8.5-10.1 [facility] Comment on above: Performed By: #### B MONI HSTROPN, BNP #### [facility] [address] [place] [address] Dr. Gina Schmitz Chloride [Moles/Vol] 103 mmol/L Normal 98-107 [facility] Comment on above: Performed By: #### B MONI, HSTROPN, BNP #### [facility] [address] [place] [address] Dr. Gina Schmitz CO2 [Moles/Vol] 28.3 mmol/L Normal 21.0-32.0 [facility] Comment on above: Performed By: #### B MONI HSTROPN, BNP #### [facility] [address] [place] [address] Dr. Gina Schmitz Creatinine [Mass/Vol] 0.69 mg/dL Normal 0.55-1.02 [facility] Comment on above: Performed By: #### B MP, HSTROPN, BNP #### [facility] [address] [address] [address] Gina Schmitz EGFR-AF ALGERIAN >60 Normal >=60 [facility] Comment on above: Performed By: #### B MP, HSTROPN, BNP #### [facility] [address] [address] [address] Gina Schmitz EGFR-NON AF ALGERIAN >60 Normal >=60 [facility] Comment on above: Performed By: #### B MP, HSTROPN, BNP #### [facility] [address] [address] [address] Gina Schmitz Glucose [Mass/Vol] 171 mg/dL Critically high 74-106 [facility] Comment on above: Performed By: #### B MP, HSTROPN, BNP #### [facility] [address] [address] [address] Gina Schmitz Potassium [Moles/Vol] 3.5 mmol/L Normal 3.5-5.1 [facility] Comment on above: Performed By: #### B MP, HSTROPN, BNP #### [facility] [address] [address] [address] Gina Schmitz Sodium [Moles/Vol] 139 mmol/L Normal 136-145 [facility] Comment on above: Performed By: #### B MP, HSTROPN, BNP #### [facility] [address] [address] [address] Gina Schmitz Urea nitrogen [Mass/Vol] 11.0 mg/dL Normal 7.0-18.0 [facility] Comment on above: Performed By: #### B MP, HSTROPN, BNP #### [facility] [address] [address] [address] Gina Schmitz Urea nitrogen/Creatinine [Mass ratio] 15.9 mg/mg Normal [facility] Comment on above: Performed By: #### B MP, HSTROPN, BNP #### [facility] [address] [address] [address] Gina Schmitz BNPon 09-16-2022 Natriuretic peptide B (Bld) [Mass/Vol] 7623.0 pg/mL Critically high <=900.0 [facility] Comment on above: Performed By: #### B MP, HSTROPN, BNP #### [facility] [address] [address] [address] Gina Schmitz CARDIAC SHEYLA 3-6on 3 CK [Catalytic activity/Vol] 57 U/L Normal 26-192 [facility] Comment on above: Performed By: #### B MP, HSTROPN, BNP #### [facility] [address] [place] [address] Dr. Gina Schmitz CK.MB [Mass/Vol] 3.07 ng/mL Normal <=3.60 [facility] Comment on above: Performed By: #### B MP, HSTROPN, BNP #### [facility] [address] [place] [address] Dr. Gina Schmitz HSTROP 59.7 pg/mL Critically high 4.0-51.3 [facility] Comment on above: Result Comment: CUT- OFF POINTS HAVE BEEN ESTABLISHED BASED ON THE FOURTH UNIVERSAL DEFINITIONS OF MYOCARDIAL INFARCTION. THE UPPER REFERENCE LIMIT (URL) OF TROPONIN, DEFINED THE 99TH PERCENTILE OF cTnI DISTRIBUTION IN A REFERENCE POPULATION, HAS BEEN CONFIRMED THE DECISION THRESHOLD FOR MD DIAGNOSIS. Performed By: #### B MP, HSTROPN, BNP #### [facility] [address] [place] [address] Dr. Gina Schmitz CBC AUTO DIFFon 09-16-2022 BASO # 0.0 103/ul Normal 0.0-0.1 [facility] Comment on above: Performed By: #### B MP, HSTROPN, BNP #### [facility] [address] [place] [address] Dr. Gina Schmitz Basophils/100 WBC (Bld) 0.2 % Normal 0.2-2.0 [facility] Comment on above: Performed By: #### B MP, HSTROPN, BNP #### [facility] [address] [place] [address] Dr. Gina Schmitz EO # 0.1 103/ul Normal 0.0-0.7 [facility] Comment on above: Performed By: #### B MP, HSTROPN, BNP #### [facility] [address] [place] [address] Dr. Gina Schmitz Eosinophils/100 WBC (Bld) 0.6 % Critically low 0.9-7.0 [facility] Comment on above: Performed By: #### B MP, HSTROPN, BNP #### [facility] [address] [place] [address] Dr. Gina Schmitz Erythrocyte distribution width (RBC) [Ratio] 15.1 % Critically high 11.0-15.0 [facility] Comment on above: Performed By: #### B MP, HSTROPN, BNP #### [facility] [address] [place] [address] Dr. Gina Schmitz Hematocrit (Bld) [Volume fraction] 44.0 % Normal 36.0-48.0 [facility] Comment on above: Performed By: #### B MP, HSTROPN, BNP #### [facility] [address] [place] [address] Dr. Gina Schmitz Hemoglobin (Bld) [Mass/Vol] 14.4 g/dL Normal 12.0-16.0 [facility] Comment on above: Performed By: #### B MP, HSTROPN, BNP #### [facility] [address] [place] [address] Dr. Gina Schmitz IG # 0.03 10e3/ul Normal 0.00-0.03 [facility] Comment on above: Performed By: #### B MP, HSTROPN, BNP #### [facility] [address] [place] [address] Dr. Gina Schmitz IG % 0.3 % Normal 0.0-0.5 [facility] Comment on above: Performed By: #### B MP, HSTROPN, BNP #### [facility] [address] [place] [address] Dr. Gina Schmitz LYMPH # 1.7 103/ul Normal 1.2-3.8 [facility] Comment on above: Performed By: #### B MP, HSTROPN, BNP #### [facility] [address] [place] [address] Dr. iGna Schmitz Lymphocytes/100 WBC (Bld) 17.2 % Critically low 20.5-60.0 [facility] Comment on above: Performed By: #### B MP, HSTROPN, BNP #### [facility] [address] [place] [address] Dr. Gina Schmitz MANUAL DIFF REQ NO Normal [facility] Comment on above: Performed By: #### B MP, HSTROPN, BNP #### [facility] [address] [place] [address] Dr. Gina Schmitz MCH (RBC) [Entitic mass] 27.3 pg Normal 26.7-34.0 [facility] Comment on above: Performed By: #### B MP, HSTROPN, BNP #### [facility] [address] [place] [address] Dr. Gina Schmitz MCHC (RBC) [Mass/Vol] 32.7 g/dL Normal 29.9-35.2 [facility] Comment on above: Performed By: #### B MP, HSTROPN, BNP #### [facility] [address] [place] [address] Dr. Gina Schmitz MCV (RBC) [Entitic vol] 83.5 fL Normal 81.0-99.0 [facility] Comment on above: Performed By: #### B MP, HSTROPN, BNP #### [facility] [address] [place] [address] Dr. Gina Schmitz MONO # 1.0 103/ul Critically high 0.3-0.8 [facility] Comment on above: Performed By: #### B MP, HSTROPN, BNP #### [facility] [address] [place] [address] Dr. Gina Schmitz Monocytes/100 WBC (Bld) 10.4 % Normal 1.7-12.0 [facility] Comment on above: Performed By: #### B MP, HSTROPN, BNP #### [facility] [address] [place] [address] Dr. Gina Schmitz NEUT # 6.8 103/ul Critically high 1.4-6.5 [facility] Comment on above: Performed By: #### B MP, HSTROPN, BNP #### [facility] [address] [place] [address] Dr. Gina Schmitz Neutrophils/100 WBC (Bld) 71.3 % Normal 43.0-75.0 [facility] Comment on above: Performed By: #### B MP, HSTROPN, BNP #### [facility] [address] [place] [address] Dr. Gina Schmitz Platelet mean volume (Bld) [Entitic vol] 10.0 fL Normal 9.5-13.5 [facility] Comment on above: Performed By: #### B MP, HSTROPN, BNP #### [facility] [address] [place] [address] Dr. Gina Schmitz PLT 217 103/ul Normal 150-450 [facility] Comment on above: Performed By: #### B MP, HSTROPN, BNP #### [facility] [address] [place] [address] Dr. Gina Schmitz RBC 5.27 106/ul Normal 4.20-5.40 [facility] Comment on above: Performed By: #### B MP, HSTROPN, BNP #### [facility] [address] [place] [address] Dr. Gina Schmitz WBC 9.6 103/ul Normal 4.0-11.0 [facility] Comment on above: Performed By: #### B MP, HSTROPN, BNP #### [facility] [address] [place] [address] Dr. Gina Schmitz [facility]on SARS-CoV-2 (COVID-19) RNA MECHE+probe Ql (Unsp spec) Not detected Normal NOT DETECTED [facility] Comment on above: Result Comment: This test is not yet approved or cleared by the [place] FDA. When there are no FDA-approved or cleared tests available, and other criteria are met, FDA can make tests available under an emergency access mechanism called an Emergency Use Authorization (EUA). The EUA for this test is supported by the [employer] of Health and Human Service's (HHS's) declaration that circumstances exist to justify the emergency use of in vitro diagnostics for the detection and/or diagnosis of the virus that causes COVID-19. This EUA will remain in effect (meaning this test can be used) for the duration of the COVID-19 declaration justifying emergency of IVDs, unless it is terminated or revoked by FDA (after which the test may no longer be used). When diagnostic testing is negative, the possibility of a false negative should be considered in the context of a patient's recent exposures and the presence of clinical signs and symptoms consistent with SARS-CoV-2. Performed By: #### B MP, HSTROPN, BNP #### [facility] [address] [place] [address] Dr. Gina Schmitz PROF CHEM 8 (BAS METB)on Anion gap [Moles/Vol] 16.3 mmol/L Normal [facility] Comment on above: Performed By: #### B MP, HSTROPN, BNP #### [facility] [address] [place] [address] Dr. Gina Schmitz Calcium [Mass/Vol] 8.8 mg/dL Normal 8.5-10.1 [facility] Comment on above: Performed By: #### B MP, HSTROPN, BNP #### [facility] [address] [place] [address] Dr. Gina Schmitz Chloride [Moles/Vol] 100 mmol/L Normal 98-107 [facility] Comment on above: Performed By: #### B MP, HSTROPN, BNP #### [facility] [address] [place] [address] Dr. Gina Schmitz CO2 [Moles/Vol] 23.3 mmol/L Normal 21.0-32.0 [facility] Comment on above: Performed By: #### B MP, HSTROPN, BNP #### [facility] [address] [address] [address] Gina Schmitz Creatinine [Mass/Vol] 0.79 mg/dL Normal 0.55-1.02 [facility] Comment on above: Performed By: #### B MP, HSTROPN, BNP #### [facility] [address] [address] [address] Gina Schmitz EGFR-AF ALGERIAN >60 Normal >=60 [facility] Comment on above: Performed By: #### B MP, HSTROPN, BNP #### [facility] [address] [address] [address] Gina Schmitz EGFR-NON AF ALGERIAN >60 Normal >=60 [facility] Comment on above: Performed By: #### B MP, HSTROPN, BNP #### [facility] [address] [place] [address] Dr. Gina Schmitz Glucose [Mass/Vol] 196 mg/dL Critically high 74-106 [facility] Comment on above: Performed By: #### B MP, HSTROPN, BNP #### [facility] [address] [address] [address] Gina Schmitz Potassium [Moles/Vol] 3.6 mmol/L Normal 3.5-5.1 [facility] Comment on above: Performed By: #### B MP, HSTROPN, BNP #### [facility] [address] [address] [address] Gina Schmitz Sodium [Moles/Vol] 136 mmol/L Normal 136-145 [facility] Comment on above: Performed By: #### B MP, HSTROPN, BNP #### [facility] [address] [address] [address] Gina Schmitz Urea nitrogen [Mass/Vol] 10.0 mg/dL Normal 7.0-18.0 [facility] Comment on above: Performed By: #### B MP, HSTROPN, BNP #### [facility] [address] [address] [address] Gina Schmitz Urea nitrogen/Creatinine [Mass ratio] 12.7 mg/mg Normal [facility] Comment on above: Performed By: #### B MP, HSTROPN, BNP #### [facility] [address] [address] [address] Gina Schmitz SYMPTOMATIC COVID-19 ANTIGEN on 09-16-2022 EUA Statement SEE BELOW Normal [facility] Comment on above: Result Comment: This test has not been FDA cleared or approved, but has been authorized by the FDA under an Emergency Use Authorization (EUA) for use by authorized laboratories certified under CLIA that meet the requirements to perform moderate or high complexity testing. This test has been authorized only for the detection of proteins from SARS-CoV-2, not for any other viruses or pathogens. The emergency use of this test is authorized for the duration of the declaration that circumstances exist justifying the authorization of emergency use of in vitro diagnostic tests for detection and/or diagnosis of Covid-19 under section 564(b)(1) of the Act, 21 U.S.C. 360bbb-3(b)(1), unless the declaration is terminated or authorization is revoked sooner. Performed By: #### C VDAGS #### [facility] [address] [address] [address] Gina Schmitz SARS-CoV-2 (COVID-19) RNA MECHE+probe Ql (Unsp spec) Negative Normal NEGATIVE [facility] Comment on above: Performed By: #### C VDAGS #### [facility] [address] [place], [place] [address] Dr. Gina Schmitz TROPONIN, HIGH SENSITIVITYon 09-16-2022 HSTROP 53.9 pg/mL Critically high 4.0-51.3 [facility] Comment on above: Result Comment: CUT- OFF POINTS HAVE BEEN ESTABLISHED BASED ON THE FOURTH UNIVERSAL DEFINITIONS OF MYOCARDIAL INFARCTION. THE UPPER REFERENCE LIMIT (URL) OF TROPONIN, DEFINED THE 99TH PERCENTILE OF cTnI DISTRIBUTION IN A REFERENCE POPULATION, HAS BEEN CONFIRMED THE DECISION THRESHOLD FOR MD DIAGNOSIS. Performed By: #### B MP, HSTROPN, BNP #### [facility] [address] [place], [place] [address] Dr. Gina Schmitz XR CHEST 1 Von 09-16-2022 XR CHEST 1 V EXAM: XR CHEST 1 V HISTORY: COUGH COMPARISON: None. TECHNIQUE: AP portable upright view of the chest FINDINGS: Pulmonary vascular congestion/edema with hazy bibasilar opacities and small to moderate bilateral pleural effusions. No pneumothorax. Enlarged cardiomediastinal silhouette. No acute osseous or soft tissue normalities. IMPRESSION: 1. Pulmonary vascular congestion/edema with hazy bibasilar opacities and small to moderate bilateral pleural effusions. Superimposed infectious/inflammato ry process cannot be excluded. 2. Enlarged cardiomediastinal silhouette. Electronically authenticated by: LUIS ENRIQUE ARREOLA Date: 2022-09-16 19:45 Normal [facility] Blood Urea Nitrogenon 2021 Urea nitrogen [Mass/Vol] 7 mg/dL Low 02-08 [facility] Comment on above: Performed By: #### P P, CBC, LYTES, BUN, CREAT #### [facility] [address] COVID-19 Antigenon 2 COVID-19 Antigen Healthcare Worker?: N Abena Reference Abena Reference Negative SARS-CoV+SARS-CoV-2 (COVID-19) Ag [Presence] in Respiratory specimen by Rapid immunoassay Negative for SARS Antigen by ED COVID19 Blank Space Abena Disclaimer Negative results, from patients with symptom Abena Disclaimer onset beyond five days, should be treated as Abena Disclaimer presumptive and confirmation with a molecular Abena Disclaimer assay, if necessary, for patient management, Abena Disclaimer may be performed. Negative results do not rule Abena Disclaimer out COVID-19 and should not be used as the sole Abena Disclaimer basis for treatment or patient management Abena Disclaimer decisions, including infection control decisions. Abena Disclaimer Negative results should be considered in the Abena Disclaimer context of a patient's recent exposures, history Abena Disclaimer and the presence of clinical signs and symptoms Abena Disclaimer consistent with COVID-19. COVID19 Blank Space Abena Disclaimer The [facility] SARS Antigen ED does not differentiate Abena Disclaimer between SARS-CoV and SARS-CoV-2. COVID19 Blank Space Abena Disclaimer This test was developed and its performance Abena Disclaimer characteristic determined by [employer] and Abena Disclaimer validated at [facility]. This Abena Disclaimer test has not been FDA cleared or approved. This Abena Disclaimer test has been authorized by FDA under an Emergency Use Abena Disclaimer Authorization (EUA). This test has been validated Abena Disclaimer in accordance with the FDA's Guidance Document (Policy Abena Disclaimer for Diagnostics Testing in Laboratories Certified to Abena Disclaimer Perform High Complexity Testing under CLIA prior to Abena Disclaimer Emergency Use Authorization for Coronavirus Abena Disclaimer iseas during the Public Health Emergency) Abena Disclaimer issued on August 19, 2019. This test is only authorized Abena Disclaimer for the duration of time the declaration that Abena Disclaimer circumstances exist justifying the authorization of Abena Disclaimer the emergency use of in vitro diagnostic tests for Abena Disclaimer detection of SARS-CoV-2 virus and/or diagnosis of Abena Disclaimer COVID-19 infection under section 564(b)(1) of the Abena Disclaimer Act, 21 U.S.C. 360bbb-3(b)(1), unless the Abena Disclaimer authorization is terminated or revoked sooner. PERFORMED BY: [facility] [place] [address] PATHOLOGIST [employer] RYAN BARRIENTOS M.D. [facility] Comment on above: Performed By: #### C OVID-19 ABENA, SOFIANEG #### [facility] [address] Coagulation Profileon 2021 aPTT Coag (Bld) [Time] 32.3 s Normal 25.1-36.5 [facility] Comment on above: Result Comment: PERF ORMED BY: [place] [address] PATHOLOGIST [employer] RYAN BARRIENTOS M.D. Performed By: #### P P, CBC, LYTES, BUN, CREAT #### [address] INR Coag (PPP) [Relative time] 1.0 {INR} Normal [facility] Comment on above: Result Comment: INR Therapeutic Range A) Pre- and Peroperative OAT started two weeks before surgery. NOT HIP SURGERY: 1.5 - 2.5 HIP SURGERY: 2 - 3 B) Primary and secondary prevention of venous THROMBOSIS: 2 - 3 C) Active venous thrombosis, pulmonary embolism and prevention of recurrent venous thrombosis: 2 - 3 D) Prevention of arterial thromboembolism including patients with mechanical heart valves: 3 - 4.5 Performed By: #### P P, CBC, LYTES, BUN, CREAT #### [address] PT Coag (PPP) [Time] 11.5 s Normal 9.0-12.9 [facility] Comment on above: Performed By: #### P P, CBC, LYTES, BUN, CREAT #### [address] Complete Blood Count Auto Di ffon 08-03-2021 Basophils (Bld) [#/Vol] 0.0 10*3/uL Normal 0.0-0.2 [facility] Comment on above: Result Comment: PERF ORMED BY: [place] [address] PATHOLOGIST [employer] RYAN BARRIENTOS M.D. Performed By: #### P P, CBC, LYTES, BUN, CREAT #### [address] Basophils/100 WBC (Bld) 0.2 % Normal . [facility] Comment on above: Performed By: #### P P, CBC, LYTES, BUN, CREAT #### [address] Eosinophils (Bld) [#/Vol] 0.1 10*3/uL Normal 0.0-0.45 [facility] Comment on above: Performed By: #### P P, CBC, LYTES, BUN, CREAT #### [address] Eosinophils/100 WBC (Bld) 1.7 % Normal . [facility] Comment on above: Performed By: #### P P, CBC, LYTES, BUN, CREAT #### [address] Erythrocyte distribution width (RBC) [Ratio] 14.6 % Normal 11.9-15.3 [facility] Comment on above: Performed By: #### P P, CBC, LYTES, BUN, CREAT #### [address] Hematocrit (Bld) [Volume fraction] 42.7 % Normal 34.0-46.4 [facility] Comment on above: Performed By: #### P P, CBC, LYTES, BUN, CREAT #### [address] Hemoglobin (Bld) [Mass/Vol] 14.7 g/dL Normal 11.8-15.4 [facility] Comment on above: Performed By: #### P P, CBC, LYTES, BUN, CREAT #### [address] Lymphocytes (Bld) [#/Vol] 1.3 10*3/uL Normal 1.00-4.8 [facility] Comment on above: Performed By: #### P P, CBC, LYTES, BUN, CREAT #### [address] [address] [place] Lymphocytes/100 WBC (Bld) 21.7 % Normal . [facility] Comment on above: Performed By: #### P P, CBC, LYTES, BUN, CREAT #### [address] MCH (RBC) [Entitic mass] 28.9 pg Normal 24.7-34.3 [facility] Comment on above: Performed By: #### P P, CBC, LYTES, BUN, CREAT #### [address] MCV (RBC) [Entitic vol] 84.1 fL Normal 80-100 [facility] Comment on above: Performed By: #### P P, CBC, LYTES, BUN, CREAT #### [address] Mean Corpuscular HGB Conc 34.4 g/dL Normal 32.0-35.0 [facility] Comment on above: Performed By: #### P P, CBC, LYTES, BUN, CREAT #### [address] Monocytes (Bld) [#/Vol] 0.5 10*3/uL Normal 0.0-0.8 [facility] Comment on above: Performed By: #### P P, CBC, LYTES, BUN, CREAT #### [address] Monocytes/100 WBC (Bld) 9.1 % Normal . [facility] Comment on above: Performed By: #### P P, CBC, LYTES, BUN, CREAT #### [place] [address] [place] Neutrophils (Bld) [#/Vol] 3.9 10*3/uL Normal 1.8-7.7 [facility] Comment on above: Performed By: #### P P, CBC, LYTES, BUN, CREAT #### [address] Neutrophils/100 WBC (Bld) 67.3 % Normal . [facility] Comment on above: Performed By: #### P P, CBC, LYTES, BUN, CREAT #### [address] Nucleated RBC/100 WBC (Bld) [Ratio] 0.1 % Normal 0-0.5 [facility] Comment on above: Performed By: #### P P, CBC, LYTES, BUN, CREAT #### [address] Platelet mean volume (Bld) [Entitic vol] 8.3 fL Normal 6.3-10.7 [facility] Comment on above: Performed By: #### P P, CBC, LYTES, BUN, CREAT #### [address] Platelets (Bld) [#/Vol] 212 10*3/uL Normal 150-450 [facility] Comment on above: Performed By: #### P P, CBC, LYTES, BUN, CREAT #### [address] RBC (Bld) [#/Vol] 5.08 10*6/uL High 3.60-5.00 [facility] Comment on above: Performed By: #### P P, CBC, LYTES, BUN, CREAT #### [address] WBC (Bld) [#/Vol] 5.8 10*3/uL Normal 4.5-11.[address] [facility] Comment on above: Performed By: #### P P, CBC, LYTES, BUN, CREAT #### [address] Creatinineon 08-03-2021 Creatinine [Mass/Vol] 0.57 mg/dL Normal 0.44-1.03 [facility] Comment on above: Performed By: #### P P, CBC, LYTES, BUN, CREAT #### [address] Estimated GFR ( Adela > 60 Normal [facility] Comment on above: Result Comment: GFR estimated reference range: According to KDOQI guidelines, <60 ml/min/1.73m2 is sufficient to diagnose a patient with chronic kidney disease. PERFORMED BY: [place] [address] PATHOLOGIST [employer] RYAN BARRIENTOS M.D. Performed By: #### P P, CBC, LYTES, BUN, CREAT #### [facility] [address] [place], [place] [id number] [facility] Estimated GFR (Non- Am > 60 Normal [facility] Comment on above: Performed By: #### P P, CBC, LYTES, BUN, CREAT #### [facility] [address] [place], [place] [id number] [facility] ECG 12 lead ECGon 08-03-2021 ECG 12 lead ECG [facility] [place] [address] [place] [address] Electrocardiograph Report Signed Patient: Jimmie Deng MR#: [id number] : 1950 Acct:[id number] Age/Sex: 70 / F ADM Date: 08/03/21 Loc: Room: Type: [facility] Attending Dr: Sejal Lucas DO Ordering Provider: Sejal Lucas DO Date of Service: 08/03/21 ECG/ECG 12 lead ECG: pre op Copies to: Test Reason : Blood Pressure : / mmHG Vent. Rate : 071 BPM Atrial Rate : 071 BPM P-R Int : 170 ms QRS Dur : 090 ms QT Int : 392 ms P-R-T Axes : 047 -01 058 degrees QTc Int : 425 ms Normal sinus rhythm Low voltage QRS Nonspecific T wave abnormality Abnormal ECG When compared with ECG of 09-JUN-2019 07:02, Criteria for Anterior infarct are no longer present Criteria for Inferior infarct are no longer present T wave inversion no longer evident in Inferior leads Nonspecific T wave abnormality, worse in Lateral leads QT has shortened Confirmed by MARY REYNAGA DO ([id number]) on 08/03/2021 4:59:01 PM Referred By: TI LUCAS Electronically Signed By:MARY REYNAGA DO Transcribed By: HERI Signed By Mary Reynaga DO 08/03 1659 Normal [facility] Electrolyteson 08-03-2021 Chloride [Moles/Vol] 97 mmol/L Normal 95-114 [facility] Comment on above: Performed By: #### P P, CBC, LYTES, BUN, CREAT #### [facility] [address] CO2 [Moles/Vol] 24.9 mmol/L Normal 22.0-30.0 [facility] Comment on above: Performed By: #### P P, CBC, LYTES, BUN, CREAT #### [facility] [address] Potassium [Moles/Vol] 3.8 mmol/L Normal 3.5-5.1 [facility] Comment on above: Performed By: #### P P, CBC, LYTES, BUN, CREAT #### [facility] [address] Sodium [Moles/Vol] 132 mmol/L Low 136-[address] [facility] Comment on above: Performed By: #### P P, CBC, LYTES, BUN, CREAT #### [facility] [address] [place] [address] Laboratory - Microbiology an d Antimicrobial susceptibilityon 08-03-2021 SARS-CoV-2 (COVID-19) RNA MECHE+probe Ql (Unsp spec) [facility] y 250 DO Work Phone: No Panel Informationon 08-03 32.3\S\32.3 Normal 25.1-36.5 [facility] y 250 DO Work Phone: Comment on above: PERFORMED BY:[address], [place] [id number] MEDICAL DIRECTORRYAN BARRIENTOS M.D. 1.0\S\1.0 Normal [facility] y 250 DO Work Phone: Comment on above: INR Therapeutic Rang e A) Pre- and Peroperative OAT started two weeks before surgery. NOT HIP SURGERY: 1.5 - 2.5 HIP SURGERY: 2 - 3 B) Primary and secondary prevention of venous THROMBOSIS: 2 - 3 C) Active venous thrombosis, pulmonary embolism and prevention of recurrent venous thrombosis: 2 - 3 D) Prevention of arterial thromboembolism including patients with mechanical heart valves: 3 - 4.5 11.5\S\11.5 Normal 9.0-12.9 [facility] y 250 DO Work Phone: 67.3\S\67.3 Normal . [facility] y 250 DO Work Phone: 8.3\S\8.3 Normal 6.3-10.7 [facility] y 250 DO Work Phone: 212\S\212 Normal 150-450 [facility] y 250 DO Work Phone: 14.6\S\14.6 Normal 11.9-15.3 [facility] y 250 DO Work Phone: 34.4\S\34.4 Normal 32.0-35.0 [facility] y 250 DO Work Phone: 28.9\S\28.9 Normal 24.7-34.3 [facility] y 250 DO Work Phone: 3.9\S\3.9 Normal 1.8-7.7 [facility] y 250 DO Work Phone: 0.1\S\0.1 Normal 0.0-0.45 [facility] y 250 DO Work Phone: 0.2\S\0.2 Normal . [facility] y 250 DO Work Phone: 1.7\S\1.7 Normal . [facility] y 250 DO Work Phone: 9.1\S\9.1 Normal . [facility] y 250 DO Work Phone: [phone] 21.7\S\21.7 Normal . [facility] y 250 DO Work Phone: [phone] 0.0\S\0.0 Normal 0.0-0.2 [facility] y 250 DO Work Phone: [phone] Comment on above: PERFORMED BY:[facility], [place] [id number] MEDICAL DIRECTORRYAN BARRIENTOS M.D. 0.5\S\0.5 Normal 0.0-0.8 [facility] y 250 DO Work Phone: [phone] 1.3\S\1.3 Normal 1.00-4.8 [facility] 250 DO Work Phone: [phone] 84.1\S\84.1 Normal 80-100 [facility] DO Work Phone: [phone] 42.7\S\42.7 Normal 34.0-46.4 [facility] 250 DO Work Phone: [phone] 14.7\S\14.7 Normal 11.8-15.4 [facility] DO Work Phone: [phone] 5.08\S\5.08 above high threshold 3.60-5.00 [facility] DO Work Phone: [phone] 5.8\S\5.8 Normal 3.8-11.6 [facility] [address] DO Work Phone: [phone] 24.9\S\24.9 Normal 22.0-30.0 [facility] DO Work Phone: [phone] 97\S\97 Normal 95-114 [facility] 250 DO Work Phone: 3.8\S\3.8 Normal 3.5-5.1 -[facility] y 250 DO Work Phone: [phone] 132\S\132 below low threshold 136-146 [facility] 250 DO Work Phone: [phone] 7\S\7 below low threshold 9-23 [facility] y 250 DO Work Phone: [phone] > 60 Normal [facility] 250 DO Work Phone: [phone] Comment on above: GFR estimated refere nce range: According to KDOQI guidelines, <60 ml/min/1.73m2 is sufficient to diagnose a patient with chronic kidney disease.PERFORMED BY:[address] [id number] MEDICAL DIRECTORRYAN BARRIENTOS M.D. 0.57\S\0.57 Normal 0.44-1.03 [facility] y 250 DO Work Phone: Negative Normal Negative [facility] Work Phone: Comment on above: This is a duplicate Abena SARS Antigen (ED) result to be used for statistical tracking purpose only.PERFORMED BY:[address] [id number] MEDICAL DIRECTORRYAN BARRIENTOS M.D. Abena Ag Negativeon 08-04-19 22 Abena Ag Negative Negative Normal Negative [facility] Comment on above: Result Comment: This is a duplicate Abena SARS Antigen (ED) result to be used for statistical tracking purpose only. PERFORMED BY: [facility] [address] [place] [address] PATHOLOGIST BEVERAGE DISTILLER RYAN BARRIENTOS M.D. 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 of dry [place] heart without angina pectoris (414.01) (I25.10) History of PTCA (V45.82) (Z98.61) History of MD (myocardial infarction) (412) (I25.2) PVD (peripheral vascular disease) (443.9) (I73.9) COPD (chronic obstructive pulmonary disease) (496) (J44.9) Overweight with body mass index (BMI) of 29 to 29.9 in adult (278.02,V85.25) (E66.3,Z68.29) Current every day smoker (305.1) (F17.200) 5 cigs a day Pre-op testing (V72.84) (Z01.818) Orders Coronary artery disease involving dry creek coronary artery of [place] heart without angina pectoris Start: Nitroglycerin 0.4 MG Sublingual Tablet Sublingual; PLACE 1 TABLET UNDER THE TONGUE EVERY 5 MINUTES FOR UP TO 3 DOSES NEEDED FOR CHEST PAIN.CALL 911 IF PAIN PERSISTS Coronary artery disease involving dry [place] coronary artery of [place] heart without angina pectoris, HLD (hyperlipidemia) ALT - Alanine Aminotransferase, Serum; Status:Active - Retrospective Authorization; Requested for:06Jun2021; AST; Status:Active - Retrospective Authorization; Requested for:06Jun2021; Lipid Panel; Status:Active - Retrospective Authorization; Requested for:06Jun2021; Overweight with body mass index (BMI) of 29 to 29.9 in adult Healthy Weight Tips; Status:Complete - Retrospective Authorization; Done: 06Jun2021 Pre-op testing, PVD (peripheral vascular disease) Basic Metabolic Panel; Status:Active - Retrospective Authorization; Requested for:06Jun2021; PVD (peripheral vascular disease) CT Angio Lower Extremity; Status:Hold For - Scheduling,Retrospect cathy Authorization; Requested for:06Jun2021; Laterality : Left Patient taking Metformin or Derivatives? : No Radiologist to Determine Optimal Study : Y What are the patient's signs and symptoms? : leg discomfort SocHx: Current every day smoker QUITTING SMOKING OR TOBACCO USE - PATIENT AND FAMILY EDUCATION; Status:Active - Retrospective Authorization; Requested for:06Jun2021; Tobacco Use Screening; Status:Complete; Done: 06Jun2021 Patient Instructions By signing my name below, I, Jess Veliz LPN, attest that this documentation has been prepared under the direction and in the presence of Dr. Iglesia Lucas DO. All medical record entries made by the Jess were at my direction and personally dictated by me. I have reviewed the chart and agree that the record accurately reflects my personal performance of the history, physical exam, discussion and plan. Please bring all medicines, vitamins, and herbal supplements with you when you come to the office. Prescriptions will not be filled unless you are compliant with your follow up appointments or have a follow up appointment scheduled as per instruction of your physician. Refills should be requested at the time of your visit. Chief Complaint JIMMIE DENG is being seen for a 6 month follow-up of. Patient is a 70-year-old female who returns for routine follow-up. She sustained an inferior MD in May 2019 with revascularization of the RCA at that time. At that time she had significant claudication symptoms, ABIs and pulse volume recordings returned very abnormal but due to her family issues in both of her daughters illnesses she was unable to proceed with any further work-up. Both daughters have now unfortunately from breast and cervical cancer individually in the same year. She still has ongoing tobacco use, her claudication symptoms have abated substantially. She does have a quit date for tobacco this weekend. She remains compliant with guideline directed medical therapies. Her walking distance is increased substantially since her revascularization and myocardial infarction. We have counseled her on tobacco cessation and congratulated her on her quit date and will assist in any way pharmacologically or psychosocially. Will continue current therapies and as previously recommended proceed with CT a bilateral lower extremity angiogram to assess her lower extremity vasculature to assess her PVD. Will follow-up in 6 months Current Meds Medication NameInstruction amLODIPine Besylate 10 MG Oral TabletTAKE 1 TABLET DAILY DIRECTED. Aspirin EC 81 MG Oral Tablet Delayed ReleaseTAKE 1 TABLET DAILY. Carvedilol 25 MG Oral TabletTAKE 1 TABLET TWICE DAILY. Lipitor 40 MG Oral TabletTAKE 1 TABLET DAILY. Lisinopril-hydroCHLOR Othiazide 20-25 MG Oral TabletTAKE 1 TABLET DAILY. Allergies Medication No Known Drug Allergies Recorded By: Marian Sood; 04/04/2021 9:39:12 AM Social History Problems Caffeine use (V49.89) (Z78.9) 3 coffee daily, occasional soda Current every day smoker (305.1) (F17.200) 5 cigs a day No alcohol use No illicit drug use Review of Systems Constitutional: not feeling tired. Cardiovascular: no intermittent leg claudication and as noted in HPI. Respiratory: no cough and no shortness of breath. Gastrointestinal: no change in bowel habits (more content not included)... Normal [facility] Tobacco Screening.on 022 Fall risk assessment a) No falls within the last year [facility] [employer] y 250 DO Work Phone: Tobacco use status CP a) Yes [facility] [employer] y 250 DO Work Phone: Tobacco Screening. Yes [facility] y 250 DO Work Phone: Vital Signs Date Time Vital Sign Value Performing Clinician Faci lity 06-06-2021 10:50-0500 Body height 161.29 cm Savanna Ayon [employer] Work Phone: [facility] [employer] GAMINSIDE DO Work Phone: 06-06-2021 10:50-0500 Body mass index (BMI) [Ratio] 29.64 kg/m2 Savanna Ayon [employer] Work Phone: [facility] [employer] 250 DO Work Phone: 06-06-2021 10:50-0500 Body surface area Derived from formula 1.82 m2 Savanna Ayon [employer] Work Phone: [facility] [employer] 250 DO Work Phone: 06-06-2021 10:50-0500 Body weight 77.11 kg Savanna Ayon [employer] Work Phone: [facility] [employer] 250 DO Work Phone: 06-06-2021 10:50-0500 Diastolic blood pressure 83 mm[Hg] Savanna Ayon [employer] Work Phone: [facility] [employer] 250 DO Work Phone: 06-06-2021 10:50-0500 Heart rate 75 /min Savanna Carter Work Phone: [facility] 250 DO Work Phone: 06-06-2021 10:50-0500 Systolic blood pressure 134 mm[Hg] Savanna Carter Work Phone: [facility] 250 DO Work Phone: Encounters Encounter Date Encounter Type Care Provider Facility Start: 01-07-2024 End: 01-07-2024 ambulatory [facility] Start: 04-08-2023 End: 04-08-2023 [facility] Start: 02-25-2023 End: 02-25-2023 ambulatory [facility] Start: 10-02-2022 ambulatory SAVANNA CARTER Facili ty:[facility]1 Start: 09-17-2022 End: 09-19-2022 Evaluation and management of inpatient SHAIKH Fidelia CARROLL Facility: Start: 10-25-2021 Rx Renewal Savanna Mcdonough rt Work Phone: [facility] 250 DO Work Phone: Start: 08-07-2021 Chart Update Savanna Mcdonough rt Work Phone: [facility] 250 DO Work Phone: Start: 08-07-2021 End: 08-08-2021 ambulatory Sejal Lucas Facility:[facility] [place] Start: 08-03-2021 End: 08-03-2021 ambulatory Sejal Lucas Facility:[facility] [place] Start: 07-05-2021 Telephone encounter Savanna brennan Work Phone: [facility] 250 DO Work Phone: Start: 06-06-2021 Office outpatient vi sit 25 minutes Savanna Carter Work Phone: [facility] 250 DO Work Phone: Patient encounter status [facility] Carter [facility] Work Phone: Procedures Date Procedure Procedure Detail Performing Clinician Cardiac catheterization Mis Carter Work Phone: History of percutane ous transluminal coronary angioplasty History of PTCA Savanna Carter Work Phone: Total colonoscopy Savanna Reyes anu Work Phone: Comment on above: Denied: History of C omplete Colonoscopy; Plan of Treatment Date Care Activity Detail Author Start: 11-22-2021 FUV, Provider: Iglesia Lucas, Status: Pen, Time: 10:30 AM [facility]UV, Provider: Iglesia Lucas, Status: Pen, Time: 10:30 AM [facility] Work Phone: Start: 07-24-2021 SURGNONUH, Provider: Iglesia Lucas, Status: Pen, Time: 9:00 AM SURGNON[facility], Provider: Iglesia Lucas, Status: Pen, Time: 9:00 AM [facility] Work Phone: Immunizations Immunization Date Immunization Notes Care Provider Lori david 10-04-2020 pneumococcal conjuga te vaccine, 13 valent Savanna Carter [facility] Work Phone: 06-09-2019 influenza virus vaccine, unspecified formulation [facility]anna Carter [facility] DO Work Phone: 06-09-2019 influenza, high dose seasonal, preservative-free Savanna Carter [facility]: [facility] DO Work Phone: Payers Date Payer Category Payer Private Health Insurance [facility] [id number] 2021 Self-pay 1957 Medicare [id number] 1950 Unknown [id number] 1950 Unknown [id number] Unknown [employer] Unknown [id number] Unknown [id number] [id number] Social History Date Type Detail Facility Caffeine use Caffeine use -[facility] 250 DO Work Phone: Comment on above: 3 coffee daily, occa sional soda; 5 cigs a day; Progress note 01-07-2024 Note Date & Type Note Facility 01-07-2024 Note [facility] SS NOTE Pt is here for a nine month follow up.Pt feels her walking is getting better but hasn't started PAD rehab but she would like too. HPI: Jimmie Deng is a 73 y.o. female with a past medical history including CAD with inferior STEMI s/p PCI, HFrEF, and PVD. She presents to Cardiology today for routine follow up. Patient had bilateral lower extremity angiogram in 2021. 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 The remaining left External iliac, common femoral, SFA, popliteal, and tibial vessels are all widely patent without disease. The right common iliac is tortuous 90 degree bends with 70 to 80% disease at the apex of both bends, but otherwise patent antegrade blood flow. The remaining external iliac, common femoral, SFA, popliteal, and tibial vessels are all widely patent without any significant stenosis. Patient adamantly denies any cardiac complaints or concerns. Patient denies any chest pain or shortness of breath. Patient denies any lower extremity edema, orthopnea, or proximal nocturnal dyspnea. No near-syncope or syncope. No dizziness or lightheadedness. She denies any lower extremity Claudication, numbness, tingling, or discoloration. She has not started with PAD rehab, but she is interested in doing Cardiology ROS: 10 point ROS is performed and is negative unless otherwise specified in HPI. Visit Vitals Smoking Status Former Allergies Allergen Reactions Azithromycin Medications: Current Outpatient Medications on File Prior to Visit Medication Sig Dispense Refill albuterol 90 mcg/actuation inhaler INHALE 2 PUFFS BY MOUTH FOUR TIMES DAILY NEEDED amLODIPine (Norvasc) 10 mg tablet Take 1 tablet (10 mg) by mouth in the morning. 90 tablet 3 aspirin 81 mg EC tablet Take 81 mg by mouth in the morning. atorvastatin (Lipitor) 80 mg tablet Take 1 tablet (80 mg) by mouth at bedtime. 90 tablet 3 carvedilol (Coreg) 25 mg tablet Take 1 tablet (25 mg) by mouth with breakfast and with evening meal. 180 tablet 3 dapagliflozin (Farxiga) 10 mg Take 1 tablet (10 mg) by mouth in the morning. (Patient not taking: Reported on 04/08/2023) 90 tablet 3 sacubitriL-valsartan (Entresto) 49-51 mg tablet Take 1 tablet by mouth in the morning and at bedtime. 60 tablet 0 spironolactone (Aldactone) 25 mg tablet Take 1 tablet (25 mg) by mouth in the morning. 90 tablet 3 No current facility-administered medications on file prior to visit. Physical Exam: Constitutional: Appearance: Normal appearance. Without apparent distress HENT: Head: Normocephalic and atraumatic. Nose: Nose normal. Mouth/Throat: Mouth: Mucous membranes are moist. Eyes: Extraocular Movements: Extraocular movements intact. Conjunctiva/sclera: Conjunctivae normal. Neck: Vascular: No JVD. Cardiovascular: Rate and Rhythm: Normal rate and regular rhythm. Pulses: Dorsalis pedis pulses are 3 on the right side and 3on the left side. Posterior tibial pulses are 3 on the right side and 3 on the left side. Heart sounds: Normal heart sounds, S1 normal and S2 normal. Pulmonary: Effort: Pulmonary effort is normal. Breath sounds: Normal breath sounds. Abdominal: General: Bowel sounds are normal. Palpations: Abdomen is soft. Musculoskeletal: General: Normal range of motion. Cervical back: Normal range of motion. Right lower leg: No edema. Left lower leg: No edema. Skin: General: Skin is warm and dry. Capillary Refill: Capillary refill takes less than 2 seconds. Neurological: General: No focal deficit present. Mental Status: She is alert and oriented to person, place, and time. Psychiatric: Mood and Affect: Mood normal. Behavior: Behavior normal. Thought Content: Thought content normal. Judgment: Judgment normal. Labs: Awaiting lab results today Addendum- renal function normal BUN 12, CR 0.77 K+ normal 4.0 Chol 153, Trig 124. HDL 43, LDL 85.2 09/19/2022 WBC 5.4, hemoglobin 13.9, hematocrit 43, platelets 229 Sodium 139, potassium 3, chloride 97, CO2 33.1, BUN 29, creatinine 0.97, estimated GFR 57% High sensitive troponin 56.7 (4-50 1.3) Testing/Procedures: Stress test 10/02/22- No acute or reversible iscemia, sm fixed defect- global hypokinesis, EF 46% No ischemic EKG changes noted. - Reviewed with pt and . Echocardiogram: 09/17/2022 Left ventricle: Normal chamber size. Thickened septal wall. D-shaped septum; suggestive of right ventricular pressure and volume overload. LVEF is severely decreased estimated ejection fraction is 20%. Global hypokinesis. Grade 2, moderate diastolic dysfunction. Left atrium: Moderate dilatation Right atrium: Moderate dilatation Right ventricle: Moderate dilatation. Decreased right ventricular systolic function. Tricuspid valve: Normal mobility and thickness. Moderate regurgitation. Moderate pulmonary hypertension. RVSP 49 (more content not included)... [facility] Progress note 04-08-2023 Note Date & Type Note Facility 04-08-2023 Note Cardiology Clinic No te Subjective Jimmie Deng is a 72 y.o. year old female with past medical history of CAD with inferior STEMI s/p PCI, HFrEF, and PVD. She presents to Cardiology for follow up. Patient Active Problem List Diagnosis Chronic systolic heart failure (CMS/HCC) Heart & renal disease, hypertensive, with heart fail/chron kidney dis (CMS/HCC) Coronary artery disease involving dry creek coronary artery of dry creek heart without angina pectoris Mixed dyslipidemia Family History Problem Relation Name Age of Onset Diabetes Mother Heart attack Father Stroke Father Other (CABG) Father Social History Tobacco Use Smoking status: Former Types: Cigarettes Quit date: 09/16/2022 Years since quittin.5 Smokeless tobacco: Never Substance Use Topics Alcohol use: Not Currently HP Jimmie Deng is a 71 y.o. female with past medical history of coronary artery disease status post PCI in setting of inferior STEMI (report not available), acute systolic heart failure, peripheral vascular disease, tobacco dependence, COPD, hyperlipidemia and hypertension seen in post hospitalization follow-up. Presented to [facility] for evaluation of dyspneic symptoms, found to be in acute heart failure with elevated BNP and ejection fraction of 25%. T proBNP was elevated > 11,000, high sensitive troponin was mildly elevated. She was diuresed and discharged on Lasix 40 mg and lisinopril/hydrochlorothiazide 20-25 mg. She has previously followed with Dr. Lucas cardiology in [place], last saw them in May 2021. She reports prior angioplasty to left lower extremity without stenting. Update: 02/25/2023 Overall, patient states that she is doing well. She denies any cardiac complaints or concerns. She denies any chest pain or shortness of breath. She denies any lower extremity edema, orthopnea, or paroxysmal nocturnal dyspnea. She states that she feels actually feels better than usual. Robinson more energized and is able to complete more than the usual. Additionally, her lower extremity claudication has significantly improved with cardiac rehab. She states that she is able to walk her normal duration without any symptoms. Update: 04/08/2023 She has been doing well, completed cardiac rehab She continues to experience left lower extremity claudication symptoms with walking, no pain at rest or noted ulcers She is interested in vascular rehab for peripheral artery disease She is still smoking about a pack in 3 days, motivated to quit Denies chest pain, dyspneic symptoms, lower extremity edema. ROS Objective Visit Vitals BP 125/80 (BP Location: Left arm, Patient Position: Sitting) Pulse 63 Ht 1.613 m (5' 3.5 ) Wt 74.8 kg (165 lb) SpO2 96% BMI 28.77 kg/m??? Smoking Status Former BSA 1.83 m??? Physical Exam General: Awake, alert, NAD Neck: No elevated JVP. No carotid bruit Pulm: Breath sounds clear to ascultation bilaterally with no wheeze, crackles or rhonchi Cards: Regular rate and rhythm, S1, S2. No S3 or S4 gallop. Murmur: none Extr: Lower extremity edema: None. Skin: warm, dry, well perfused Neuro: A&Ox3, No gross deficits Allergies Allergies Allergen Reactions Azithromycin Medications Current Outpatient Medications: albuterol 90 mcg/actuation inhaler, INHALE 2 PUFFS BY MOUTH FOUR TIMES DAILY NEEDED, Disp: , Rfl: amLODIPine (Norvasc) 10 mg tablet, Take 1 tablet (10 mg) by mouth in the morning., Disp: 90 tablet, Rfl: 3 aspirin 81 mg EC tablet, Take 81 mg by mouth in the morning., Disp: , Rfl: atorvastatin (Lipitor) 80 mg tablet, Take 1 tablet (80 mg) by mouth at bedtime., Disp: 90 tablet, Rfl: 3 carvedilol (Coreg) 25 mg tablet, Take 1 tablet (25 mg) by mouth with breakfast and with evening meal., Disp: 180 tablet, Rfl: 3 spironolactone (Aldactone) 25 mg tablet, Take 1 tablet (25 mg) by mouth in the morning., Disp: 90 tablet, Rfl: 3 dapagliflozin (Farxiga) 10 mg, Take 1 tablet (10 mg) by mouth in the morning. (Patient not taking: Reported on 04/08/2023), Disp: 90 tablet, Rfl: 3 sacubitriL-valsartan (Entresto) 49-51 mg tablet, Take 1 tablet by mouth in the morning and at bedtime., Disp: 60 tablet, Rfl: 0 Recent Labs Recent labs reviewed, last lipid profile available showed LDL of 89. Imaging and other tests Echo: 03/28/2023 Global left ventricular systolic function is normal; visually estimated ejection fraction 55 to 60% Left ventricular wall thickness is increased The right ventricle is normal in size and systolic function Unable to assess diastolic function No significant valvular abnormalities Anterior free space; trivial effusion versus fat pad Stress test 10/02/22- No acute or reversible iscemia, sm fixed defect- global hypokinesis, EF 46% No ischemic EKG changes noted. - Reviewed with pt and . Echocardiogram: 09/17/2022 Left ventricle: Normal chamber size. Thickened septal wall. D-shaped septum; suggesti (more content not included)... [facility] Progress note 04-08-2023 Note Date & Type Note Facility 04-08-2023 Note Patient here for fol low up labs and echo. She has finished cardiac rehab and is interested in started PAD rehab. She has been out of [facility] for the past few weeks. She denies chest pain and SOB. Review of Systems Cardiovascular: Positive for claudication (LLE). Respiratory: Positive for cough. All other systems reviewed and are negative. [facility] Progress note 02-25-2023 Note Date & Type Note Facility 02-25-2023 Note Patient here to talk about possible LE revascularization. She does PAD rehab 2-3 days a week, and thinks this has been helping. Patient doesn't think she's taking spironolactone and she isn't sure why. [facility] Progress note 02-25-2023 Note Date & Type Note Facility 02-25-2023 Note [facility] PROGR ESS NOTE HPI: Jimmie Deng is a 72 y.o. female with a past medical history including CAD with inferior STEMI s/p PCI, HFrEF, and PVD. She presents to Cardiology for follow up. Overall, patient states that she is doing well. She denies any cardiac complaints or concerns. She denies any chest pain or shortness of breath. She denies any lower extremity edema, orthopnea, or paroxysmal nocturnal dyspnea. She states that she feels actually feels better than usual. Robinson more energized and is able to complete more than the usual. Additionally, her lower extremity claudication has significantly improved with cardiac rehab. She states that she is able to walk her normal duration without any symptoms. Review of Systems Constitutional: Negative. Respiratory: Negative. Cardiovascular: Negative. Neurological: Negative. Hematological: Negative. All other systems reviewed and are negative. Visit Vitals BP 131/84 (BP Location: Left arm, Patient Position: Sitting) Pulse 70 Ht 1.613 m (5' 3.5 ) Wt 74.4 kg (164 lb) SpO2 97% BMI 28.60 kg/m??? Smoking Status Former BSA 1.83 m??? Allergies Allergen Reactions Azithromycin Medications: Current Outpatient Medications on File Prior to Visit Medication Sig Dispense Refill albuterol 90 mcg/actuation inhaler INHALE 2 PUFFS BY MOUTH FOUR TIMES DAILY NEEDED amLODIPine (Norvasc) 10 mg tablet Take 1 tablet (10 mg) by mouth in the morning. 90 tablet 3 aspirin 81 mg EC tablet Take 81 mg by mouth in the morning. atorvastatin (Lipitor) 80 mg tablet Take 1 tablet (80 mg) by mouth at bedtime. 90 tablet 3 carvedilol (Coreg) 25 mg tablet Take 25 mg by mouth with breakfast and with evening meal. dapagliflozin (Farxiga) 10 mg Take 1 tablet (10 mg) by mouth in the morning. 90 tablet 3 sacubitriL-valsartan (Entresto) 49-51 mg tablet Take 1 tablet by mouth in the morning and at bedtime. 60 tablet 0 spironolactone (Aldactone) 25 mg tablet Take 0.5 tablets (12.5 mg) by mouth in the morning. (Patient not taking: Reported on 02/25/2023) 45 tablet 3 No current facility-administered medications on file prior to visit. Physical Exam: Constitutional: Appearance: Normal appearance. Without apparent distress HENT: Head: Normocephalic and atraumatic. Nose: Nose normal. Mouth/Throat: Mouth: Mucous membranes are moist. Eyes: Extraocular Movements: Extraocular movements intact. Conjunctiva/sclera: Conjunctivae normal. Neck: Vascular: No JVD. Cardiovascular: Rate and Rhythm: Normal rate and regular rhythm. Pulses: Dorsalis pedis pulses are 3 on the right side and 3on the left side. Posterior tibial pulses are 3 on the right side and 3 on the left side. Heart sounds: Normal heart sounds, S1 normal and S2 normal. Pulmonary: Effort: Pulmonary effort is normal. Breath sounds: Normal breath sounds. Abdominal: General: Bowel sounds are normal. Palpations: Abdomen is soft. Musculoskeletal: General: Normal range of motion. Cervical back: Normal range of motion. Right lower leg: No edema. Left lower leg: No edema. Skin: General: Skin is warm and dry. Capillary Refill: Capillary refill takes less than 2 seconds. Neurological: General: No focal deficit present. Mental Status: She is alert and oriented to person, place, and time. Psychiatric: Mood and Affect: Mood normal. Behavior: Behavior normal. Thought Content: Thought content normal. Judgment: Judgment normal. Labs: Awaiting lab results today Addendum- renal function normal BUN 12, CR 0.77 K+ normal 4.0 Chol 153, Trig 124. HDL 43, LDL 85.2 09/19/2022 WBC 5.4, hemoglobin 13.9, hematocrit 43, platelets 229 Sodium 139, potassium 3, chloride 97, CO2 33.1, BUN 29, creatinine 0.97, estimated GFR 57% High sensitive troponin 56.7 (4-50 1.3) Testing/Procedures: Stress test 10/02/22- No acute or reversible iscemia, sm fixed defect- global hypokinesis, EF 46% No ischemic EKG changes noted. - Reviewed with pt and . Echocardiogram: 09/17/2022 Left ventricle: Normal chamber size. Thickened septal wall. D-shaped septum; suggestive of right ventricular pressure and volume overload. LVEF is severely decreased estimated ejection fraction is 20%. Global hypokinesis. Grade 2, moderate diastolic dysfunction. Left atrium: Moderate dilatation Right atrium: Moderate dilatation Right ventricle: Moderate dilatation. Decreased right ventricular systolic function. Tricuspid valve: Normal mobility and thickness. Moderate regurgitation. Moderate pulmonary hypertension. RVSP 49 mmHg. Mitral valve: Normal mobility and thickness. No mitral valve prolapse. No evidence of mitral valve stenosis. There is no mitral annular calcification. Moderate to severe mitral regurgitation. Aortic valve: Normal trileaflet appearance. No visible sclerosis. Normal trileaflet mobility. No evidence of aortic valve stenosis. No aortic regurgitation. Aortic root: (more content not included)... [facility] Clinical Note 09-18-2022 Note Date & Type Note Facility 09-18-2022 Note PROCEDURE: CT CHEST WO CON DATE: 09/17/2022 8:31 AM CDT COMPARISONS: None. CLINICAL INDICATION: 71 years Female SHORTNESS OF BREATH TECHNIQUE: Axial images were obtained. Coronal and sagittal reformations were created. Individualized dose optimization technique was used for the procedure performed. FINDINGS: The thoracic aorta shows no evidence of aneurysm.There is calcification in the wall of the thoracic aorta. The heart size is within normal limits. There is no significant pericardial effusion or pericardial thickening. There is a large amount of coronary calcification. There is no mediastinal masses or adenopathy. There is no axillary adenopathy. There is a heterogeneous mass of the left thyroid. Its etiology is unclear. Follow-up thyroid ultrasound is recommended. There is [id number] size bilateral pleural effusions. There is associated compressive atelectasis adjacent to the effusions, left greater than right. No evidence of lung nodules or masses. No significant abnormalities are identified of the visualized osseous structures. No significant abnormalities are identified of the visualized portion of the upper abdomen. IMPRESSION: 1. [id number]-[id number] size bilateral pleural effusions 2. Findings most consistent with associated compressive atelectasis 3. Vascular calcification including a large amount of coronary calcification 4. Heterogeneous mass of the left aspect of the thyroid. Follow-up thyroid ultrasound recommended for further characterization. Electronically authenticated by: ADRIANA DAMIAN Date: 2022-09-18 07:30 [facility] Chief Complaint * JIMMIE DENG is being seen for a 6 month follow-up of. * Patient is a 70-year-old female who returns for routine follow-up. She sustained an inferior MD in May 2019 with revascularization of the RCA at that time. At that time she had significant claudication symptoms, ABIs and pulse volume recordings returned very abnormal but due to her family issues in both of her daughters illnesses she was unable to proceed with any further work-up. * Both daughters have now unfortunately from breast and cervical cancer individually in the same year. * She still has ongoing tobacco use, her claudication symptoms have abated substantially. She does have a quit date for tobacco this weekend. She remains compliant with guideline directed medical therapies. Her walking distance is increased substantially since her revascularization and myocardial infarction. * We have counseled her on tobacco cessation and congratulated her on her quit date and will assist in any way pharmacologically or psychosocially. * Will continue current therapies and as previously recommended proceed with CT a bilateral lower extremity angiogram to assess her lower extremity vasculature to assess her PVD. * Will follow-up in 6 months Family History No Family History Records FoundUnknown Family Member Name Dates Details Family history of dementia: Mother(V17.2, Z81.8) Status:Active Heart problem: Father Status:Active S/P CABG x 3: Father(V45.81, Z95.1) Status:Active Unknown Family Member Name Dates Details Family history of dementia: Mother(V17.2, Z81.8) Status:Active Heart problem: Father Status:Active S/P CABG x 3: Father(V45.81, Z95.1) Status:Active Unknown Family Member Name Dates Details Family history of dementia: Mother(V17.2, Z81.8) Status:Active Heart problem: Father Status:Active S/P CABG x 3: Father(V45.81, Z95.1) Status:Active Unknown Family Member Name Dates Details Family history of dementia: Mother(V17.2, Z81.8) Status:Active Heart problem: Father Status:Active S/P CABG x 3: Father(V45.81, Z95.1) Status:Active Unknown Family Member Name Dates Details Family history of dementia: Mother(V17.2, Z81.8) Status:Active Heart problem: Father Status:Active S/P CABG x 3: Father(V45.81, Z95.1) Status:Active Summary Purpose Advance Directives No Advanced Directives Records FoundNo Advanced Directives Records FoundNo Advanced Directives Records FoundNo Advanced Directives Records Found Additional Source Comments INFORMATION SOURCE (unrecogn ized section and content) DATE CREATED AUTHOR 06/07/2021 [employer] DATE CREATED AUTHOR AUTHOR'S ORGANIZ ATION 06/22/2022 [facility] DATE CREATED AUTHOR AUTHOR'S ORGANIZ ATION 10/02/2022 [facility] DATE CREATED AUTHOR AUTHOR'S ORGANIZ ATION 01/09/2024 [facility] FOR RECORDS PERTAINING TO PATIENTS WHO ARE OR HAVE BEEN ENROLLED IN A CHEMICAL DEPENDENCY/SUBSTANCEABUSE PROGRAM, SOME INFORMATION MAY BE OMITTED. This clinical summary was aggregated from multiple sources. Caution should be exercised in using it in the provision of clinical care. This summary normalizes information from multiple sources, and as a consequence, information in this document may materially change the coding, format and clinical context of patient data. In addition, data may be omitted in some cases. CLINICAL DECISIONS SHOULD BE BASED ON THE PRIMARY CLINICAL RECORDS. [facility] [employer] [facility]. provides no warranty or guarantee of the accuracy or completeness of information in this document.
[2024-07-12 10:09] LABS: Anion Gap 12.4; BUN Creatinine Ratio 10.6; Calcium 9.3 mg/dL (8.5-10.1); Chloride 102 mmol/L (98-107); Chol HDL Ratio 4.8; Cholesterol 174 mg/dL (<=200); Estimated GFR (African America >60 (>=60 mL/min/1.73m^2); Estimated GFR (Non-African Ame >60 (>=60 mL/min/1.73m^2); Glucose 146 mg/dL (74-106); HDL Cholesterol 36 mg/dL (40-60); Potassium 4.4 mmol/L (3.5-5.1); Sodium 139 mmol/L (136-145); Triglycerides 130 mg/dL (<=150)
== END 2024-07-12 09:08 | disposition home or self-care (01) ==
PROVIDERS: Visit Provider Internal Medicine Cardiovascular Disease
DX: E78.5 Hyperlipidemia, unspecified (principal); I10 Essential (primary) hypertension
CPT/HCPCS: 36415; 80048; 80061

== ENCOUNTER 2024-10-12 08:05 | Outpatient (OUT) | payer MEDICARE, SELFPAY ==
--- OUTSIDE RECORDS SUMMARY | 2024-07-12 10:29 | XMS_ITS ---
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 Name Role Phone RIGO LEMUS Attending Unavailable RIGO LEMUS Attending Unavailable PROBLEMS DATE TYPE CONDITION / CODE ATTENDING STATUS [facility] 01/07/2024 Admitting Diagnosis Atherosclerotic heart disease of redding coronary artery without angina pectoris / I25.10(ICD-10) RIGO LEMUS Active [facility] 01/07/2024 Admitting Diagnosis Coronary atherosclerosis due to lipid rich plaque / I25.83(ICD-10) RIGO LEMUS Active [facility] PROCEDURES No Procedure Records Found RESULTS PROGRESS Observed: 07/12/2024 9:40 AM Status: COMPLETED Source: [facility] PROGRESS NOTE HPI: Medardo Deng is a 73 y.o. female with [...] widely patent without any significant stenosis. Patient here for 6 mo follow up CAD, PVD, and HFiEF. [email or web address] she says. Had labs done this morning prior to apt. Says her legs are feeling better. She was able to walk around the hospital this morning without claudication. Denies chest pain and SOB. She has not started with PAD rehab, [...] valve stenosis. No aortic regurgitation. Aortic root: Normal diameter and appearance. Pulmonic valve: Normal thickness and mobility. No stenosis. Trivial regurgitation. Pericardium: No evidence of pericardial effusion IVC: Mild dilatation 2.2 cm with no collapse. Pleura: Moderate pleural effusion Chest CT: 09/17/2022 The thoracic aorta shows no evidence of aneurysm. There is calcification in the wall of the thoracic aorta. The heart size is within normal limits. There is no significant pericardial effusion or pericardial thickening. There is a large amount of coronary calcification. There is no mediastinal masses or adenopathy. There is no axillary adenopathy There is heterogeneous mass in the left thyroid. Its etiology is unclear. Follow-up thyroid ultrasound is recommended. There is small to moderate size bilateral pleural effusions. There is associated compressive atelectasis adjacent to the effusions, left greater than right. No evidence of lung nodules or masses. No significant abnormalities identified of the visualized osseous structures. No significant abnormalities identified in the visualized portion of the upper abdomen Heart failure with improved EF(CMS/HCC) [facility]- II She euvolemic on exam. No orthopnea or PND Continue GDMT- ASA, lipitor, Coreg, entresto, aldactone, and farxiga. Emphasized importance of medication compliance Diuretic therapy- continue lasix 40 mg daily Monitor daily weights, I&O, fluid restriction 1.5-2L/day, Coronary artery disease involving redding coronary artery of redding heart without angina pectoris No angina or anginal equivalent Continue GDMT- ASA, lipitor, coreg continue risk factor modifications- heart healthy diet, regular exercise as tolerated and continue all medications. PVD Patient was previously complaining of claudication. She reports that it has improved significantly to the point of resolution. Severe PAD on angiogram She was To PAD rehab, she has not yet started, she will follow-up with them. Continue aspirin, statin Continue Aspirin, high intensity statin -Optimize medical management -Aggressive risk factor modification -Plan of care discussed with patient. All questions were answered. Patient voices understanding and is agreeable with current plan. -Patient was educated on red flag symptoms. Strict return precautions were provided. Patient verbalizes understanding -Follow-up in cardiology clinic in 6 weeks or sooner as needed Rigo Lemus MD OFFICE VISIT Observed: 07/12/2024 9:40 AM Status: COMPLETED Source: [facility] [id number] Medardo Deng 0 1950 F Date Provider Department Center 07/12/2024 3848-RIGO LEMUS CARD [facility] Family History Problem Relation Age of Onset Diabetes Mother Heart attack Father Stroke Father Other Father Family Status - Relation Status Age at Mother Father Level of Service:37088 [place] OFFICE/OUTPATIENT ESTABLISHED LOW MDM 20 MIN ORDERS ONLY Observed: 07/12/2024 12:00 AM Status: COMPLETED Source: [facility] [id number] Medardo Deng 0 1950 F Date Provider Department Center 07/12/2024 AMEE PEDRAZA CARD [facility] Family History Problem Relation Age of Onset Diabetes Mother Heart attack Father Stroke Father Other Father Family Status - Relation Status Age at Mother Father PROGRESS Observed: 01/07/2024 10:00 AM Status: COMPLETED Source: [facility] PROGRESS NOTE Pt is here for a nine month follow up.Pt feels her walking is getting better but hasn't started PAD rehab but she would like too. HPI: Medardo Deng is a 73 y.o. female with [...] valve stenosis. No aortic regurgitation. Aortic root: Normal diameter and appearance. Pulmonic valve: Normal thickness and mobility. No stenosis. Trivial regurgitation. Pericardium: No evidence of pericardial effusion IVC: Mild dilatation 2.2 cm with no collapse. Pleura: Moderate pleural effusion Chest CT: 09/17/2022 The thoracic aorta shows no evidence of aneurysm. There is calcification in the wall of the thoracic aorta. The heart size is within normal limits. There is no significant pericardial effusion or pericardial thickening. There is a large amount of coronary calcification. There is no mediastinal masses or adenopathy. There is no axillary adenopathy There is heterogeneous mass in the left thyroid. Its etiology is unclear. Follow-up thyroid ultrasound is recommended. There is small to moderate size bilateral pleural effusions. There is associated compressive atelectasis adjacent to the effusions, left greater than right. No evidence of lung nodules or masses. No significant abnormalities identified of the visualized osseous structures. No significant abnormalities identified in the visualized portion of the upper abdomen Heart failure with improved EF(CMS/HCC) [facility]- II She euvolemic on exam. No orthopnea or PND Continue GDMT- ASA, lipitor, Coreg, entresto, aldactone, and farxiga Diuretic therapy- continue lasix 40 mg daily Monitor daily weights, I&O, fluid restriction 1.5-2L/day, Coronary artery disease involving redding coronary artery of redding heart without angina pectoris No angina or anginal equivalent Continue GDMT- ASA, lipitor, coreg continue risk factor modifications- heart healthy diet, regular exercise as tolerated and continue all medications. PVD Patient was previously complaining of claudication. She reports that it has improved significantly Severe PAD on angiogram She was To PAD rehab, she has not yet started, she will follow-up with them. Continue aspirin, statin Continue Aspirin, high intensity statin -Optimize medical management -Aggressive risk factor modification -Plan of care discussed with patient. All questions were answered. Patient voices understanding and is agreeable with current plan. -Patient was educated on red flag symptoms. Strict return precautions were provided. Patient verbalizes understanding -Follow-up in cardiology clinic in 6 weeks or sooner as needed Rigo Lemus MD OFFICE VISIT Observed: 01/07/2024 10:00 AM Status: COMPLETED Source: [facility] [id number] Medardo Deng 0 1950 F Date Provider Department Center 01/07/2024 3848-RIGO LEMUS CARD [facility] Family History Problem Relation Age of Onset Diabetes Mother Heart attack Father Stroke Father Other Father Family Status - Relation Status Age at Mother Father Level of Service:04377 [place] OFFICE/OUTPATIENT ESTABLISHED MOD MDM 30 MIN ALLERGIES DATE TYPE / CODE NAME / CODE REACTION SEVERITY SOURCE 09/24/2022 DRUG INGREDI/[id number](S NOMED CT) AZITHROMYCIN [facility] ENCOUNTERS ADMIT/DISCHARGE ACCOUNT NUMBER ADMITTING ENCOUNTER CLASS LOCATION SOURCE 07/12/2024/ 5 [id number] Ambulatory Building:[facility] 01/07/2024/ 4 [id number] Ambulatory Building:[facility] PAYERS ENCOUNTER GUARANTOR PAYER SUBSCRIBER SOURCE 07/12/2024 Primary Insuranc e:[employer] MEDICAREPolicy Number: [id number] Date:2022-05-19 MEDARDO ERICKSONOB: [id number] [place] [address] [facility] 01/07/2024 Primary Insuranc e:[employer] MEDICAREPolicy Number: [id number] Date:2022-05-19 MEDARDO ROSADO: [id number] [place] [address] [facility]
[2024-10-12 09:12] LABS: Chol HDL Ratio 3.3; Cholesterol 130 mg/dL (<=200); HDL Cholesterol 39 mg/dL (40-60); Triglycerides 131 mg/dL (<=150); VLDL CHOLESTEROL 26.2 mg/dL
== END 2024-10-12 08:06 | disposition home or self-care (01) ==
LOC: LAB 08:05
PROVIDERS: Visit Provider Internal Medicine Cardiovascular Disease
DX: E78.5 Hyperlipidemia, unspecified (principal)
CPT/HCPCS: 36415; 80061

== ENCOUNTER 2024-12-21 07:08 | Outpatient (OUT) | payer MEDICARE, SELFPAY ==
--- OUTSIDE RECORDS SUMMARY | 2024-12-21 07:10 | XMS_ITS | CCD ---
Author Organization [facility] ion Partnership [facility] Care Team Providers Care Etl Application Developer Name Role Phone Savanna Carter Unavailable Unavailable Unavailable Sejal Lucas Admitting Unavailable Sejal Lucas Attending Unavailable Savanna Carter Primary Care UnavailSejal Mendoza Attending Unavailable Sejal Lucas Admitting Unavailable Savanna Carter Primary Care UnavailSHAIKH Fidelia hPipps Admitting Unavailable ABEL ., DR SANTANA Consulting [...] POLANCO Attending Unavailable MADDISON LEMUS Attending Unavailable MADDISON LEMUS Attending Unavailable MAREN SHARMA Attending Unavailable Allergies Allergy Classification Reported Allergen(s) Allergy Type Date of Onset Reaction(s) Facility (2 sources) Azithromycin; 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: [AZITHROMYCIN] Drug Allergy 08-03-2021 [facility] Repository (1 source) Azithromycin Drug Allergy [facility] Medications Completed/Discontinued Medications Medication Drug Class(es) [...] Onset: 10-01-2022 Chronic Congestive heart failure; nonhypertensive (3 sources) Acute on chronic systolic (congestive) heart failure; 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: [ACUTE CHRON SYSTOLIC HEART FAILURE] Onset: 10-01-2022 Chronic Coronary atherosclerosis and other heart disease (15 sources) Coronary atherosclerosis; 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: [Coronary atherosclerosis of lumbee coronary artery] Onset: 10-01-2022 Chronic Coronary atherosclerosis and other heart disease (1 source) Coronary atherosclerosis and other heart disease; 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: [I70.213 - Atherosclerosis of lumbee arteries of extremities with intermittent claudication, bilateral legs] Onset: 08-07-2021 Diabetes mellitus without complication (5 sources) Diabetes mellitus; 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: [Diabetes mellitus without mention of complication, type II or unspecified type, not stated as uncontrolled] Chronic Disorders of lipid metabolism (6 sources) Hyperlipidemia; 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: [Other and unspecified hyperlipidemia] Onset: 10-01-2022 Chronic Essential hypertension (5 sources) Hypertensive disorder; 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: [Unspecified essential hypertension] Chronic Hypertension with complications and secondary hypertension (4 sources) Hypertensive heart disease with heart failure; 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: [Hypertensive emergency] Onset: 09-17-2022 Chronic Immunizations and screening for infectious disease (5 sources) Patient encounter status; 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: [Other specified vaccination] Episodic Other aftercare (1 source) 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; 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] Onset: 10-01-2022 Episodic Other aftercare (1 source) Other shelter (current) drug therapy; 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: [OTH WATERPROOFER CURRENT DRUG THERAPY] Onset: 10-01-2022 Episodic Other [...] UNS HYPOX/HYPERCAPNIA] Onset: 10-01-2022 Episodic Substance-related disorders (6 sources) Smokes tobacco daily; 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: [Tobacco use disorder] Onset: 10-01-2022 Chronic Comment on above: 5 cigs a day; Unclassified (1 source) Z01.812 - Encounter for preprocedural laboratory examination; 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: [Z01.812 - Encounter for preprocedural laboratory examination] Onset: 08-03-2021 Results Test Name Value Interpretation Reference Range Facility Office Visiton 11-18-2024 Follow-up visit [id number] Jimmie Deng 1950 Provider Department Center 11/18/2024 271-MAREN SHARMA ANGELINA Rivera Family History Problem Relation Age of Onset Diabetes Mother Heart attack Father Stroke Father Other Father Family Status - Relation Status Age at Mother Father Level of Service:12267 [place] OFFICE/OUTPATIENT ESTABLISHED MOD MDM 30 MIN Normal [facility] Orders Onlyon 10-19-2024 Orders Only [id number] Jimmie Deng 1950 Provider Department Center 10/19/2024 928-ILIR AVALOS ANGELINA [facility] Family History Problem Relation Age of Onset Diabetes Mother Heart attack Father Stroke Father Other Father Family Status - Relation Status Age at Mother Father Normal [facility] Orders Onlyon 10-12-2024 Orders Only [id number] Jimmie Deng 1950 F Date Provider Department Center 10/12/2024 [id number], FREYA [facility] Family History Problem Relation Age of Onset Diabetes Mother Heart attack Father Stroke Father Other Father Family Status - Relation Status Age at Mother Father Normal [facility] Office Visiton 07-12-2024 Follow-up visit [id number] Jimmie Deng 1950 F Date Provider Department Center 07/12/2024 MADDISON YOO [facility] Family History Problem Relation Age of Onset Diabetes Mother Heart attack Father Stroke Father Other Father Family Status - Relation Status Age at Mother Father Level of Service:80219 [place] OFFICE/OUTPATIENT ESTABLISHED LOW MDM 20 MIN Normal [facility] Orders Onlyon 07-12-2024 Orders Only [id number] Jimmie Deng 1950 F Provider Department Center 07/12/2024 895-AMEE GLORIA [facility] Family History Problem Relation Age of Onset Diabetes Mother Heart attack Father Stroke Father Other Father Family Status - Relation Status Age at Mother Father Normal [facility] Office Visiton 01-07-2024 Follow-up visit [id number] Jimmie Deng 1950 Provider Department Center 01/07/2024 MADDISON YOO [facility] Family History Problem Relation Age of Onset Diabetes Mother Heart attack Father Stroke Father Other Father Family Status - Relation Status Age at Mother Father Level of Service:65679 [place] OFFICE/OUTPATIENT ESTABLISHED MOD MDM 30 MIN Normal [facility] BNPon 09-19-2022 Natriuretic peptide B (Bld) [Mass/Vol] 2398.0 pg/mL Critically high <=900.0 [facility] Comment on above: Performed By: #### B MP, BNP #### [facility] [address] [place], [place] [address] Dr. Gina Schmitz CBC AUTO DIFFon 09-19-2022 BASO # 0.0 103/ul Normal 0.0-0.1 [facility] Comment on above: Performed By: #### B MP, HSTROPN, BNP #### [facility] [address] [place] [address] Dr. Gina Schmitz Basophils/100 WBC (Bld) 0.2 % Normal 0.2-2.0 [facility] Comment on above: Performed By: #### B MP, HSTROPN, BNP #### [facility] [address] [place] [address] Dr. Gina Schmitz EO # 0.0 103/ul Normal 0.0-0.7 [facility] Comment on above: Performed By: #### B MP, HSTROPN, BNP #### [facility] [address] [place] [address] Dr. Gina Schmitz Eosinophils/100 WBC (Bld) 0.6 % Critically low 0.9-7.0 [facility] Comment on above: Performed By: #### B MP, HSTROPN, BNP #### [facility] [address] [place] [address] Dr. Gina Schmitz Erythrocyte distribution width (RBC) [Ratio] 14.8 % Normal 11.0-15.0 [facility] Comment on above: Performed By: #### B MP, HSTROPN, BNP #### [facility] [address] [place] [address] Dr. Gina Schmitz Hematocrit (Bld) [Volume fraction] 43.0 % Normal 36.0-48.0 [facility] Comment on above: Performed By: #### B MP, HSTROPN, BNP #### [facility] [address] [place] [address] Dr. Gina Schmitz Hemoglobin (Bld) [Mass/Vol] 13.9 g/dL Normal 12.0-16.0 [facility] Comment on above: Performed By: #### B MP, HSTROPN, BNP #### [facility] [address] [place] [address] Dr. Gina Schmitz IG # 0.02 10e3/ul Normal 0.00-0.03 [facility] Comment on above: Performed By: #### B MP, HSTROPN, BNP #### [facility] [address] [place] [address] Dr. Gina Schmitz IG % 0.4 % Normal 0.0-0.5 [facility] Comment on above: Performed By: #### B MP, HSTROPN, BNP #### [facility] [address] [place] [address] Dr. Gina Schmitz LYMPH # 1.5 103/ul Normal 1.2-3.8 [facility] Comment on above: Performed By: #### B MP, HSTROPN, BNP #### [facility] [address] [place] [address] Dr. Gina Schmitz Lymphocytes/100 WBC (Bld) 28.2 % Normal 20.5-60.0 [facility] Comment on above: Performed By: #### B MP, HSTROPN, BNP #### [facility] [address] [place] [address] Dr. Gina Schmitz MANUAL DIFF REQ NO Normal [facility] Comment on above: Performed By: #### B MP, HSTROPN, BNP #### [facility] [address] [place] [address] Dr. Gina Schmitz MCH (RBC) [Entitic mass] 26.7 pg Normal 26.7-34.0 [facility] Comment on above: Performed By: #### B MP, HSTROPN, BNP #### [facility] [address] [place] [address] Dr. Gina Schmitz MCHC (RBC) [Mass/Vol] 32.3 g/dL Normal 29.9-35.2 [facility] Comment on above: Performed By: #### B MP, HSTROPN, BNP #### [facility] [address] [place] [address] Dr. Gina Schmitz MCV (RBC) [Entitic vol] 82.7 fL Normal 81.0-99.0 [facility] Comment on above: Performed By: #### B MP, HSTROPN, BNP #### [facility] [address] [place] [address] Dr. Gina Schmitz MONO # 0.6 103/ul Normal 0.3-0.8 [facility] Comment on above: Performed By: #### B MP, HSTROPN, BNP #### [facility] [address] [place] [address] Dr. Gina Schmitz Monocytes/100 WBC (Bld) 10.3 % Normal 1.7-12.0 [facility] Comment on above: Performed By: #### B MP, HSTROPN, BNP #### [facility] [address] [place] [address] Dr. Gina Schmitz NEUT # 3.2 103/ul Normal 1.4-6.5 [facility] Comment on above: Performed By: #### B MP, HSTROPN, BNP #### [facility] [address] [place] [address] Dr. Gina Schmitz Neutrophils/100 WBC (Bld) 60.3 % Normal 43.0-75.0 [facility] Comment on above: Performed By: #### B MP, HSTROPN, BNP #### [facility] [address] [place] [address] Dr. Gina Schmitz Platelet mean volume (Bld) [Entitic vol] 9.6 fL Normal 9.5-13.5 [facility] Comment on above: Performed By: #### B MP, HSTROPN, BNP #### [facility] [address] [place] [address] Dr. Gina Schmitz PLT 229 103/ul Normal 150-450 [facility] Comment on above: Performed By: #### B MP, HSTROPN, BNP #### [facility] [address] [place] [address] Dr. Gina Schmitz RBC 5.20 106/ul Normal 4.20-5.40 [facility] Comment on above: Performed By: #### B MP, HSTROPN, BNP #### [facility] [address] [place] [address] Dr. Gina Schmitz WBC 5.4 103/ul Normal 4.0-11.0 [facility] Comment on above: Performed By: #### B MP, HSTROPN, BNP #### [facility] [address] [place] [address] Dr. Gina Schmitz POINT OF CARE GLUCOSEon 05-0 Glucose [Mass/Vol] 221 mg/dL Critically high 74-106 [facility] Comment on above: Performed By: #### B MP, HSTROPN, BNP #### [facility] [address] [place] [address] Dr. Gina Schmitz PROF CHEM 8 (BAS METB)on Anion gap [Moles/Vol] 10.9 mmol/L Normal [facility] Comment on above: Performed By: #### B MP, BNP #### [facility] [address] [place] [address] Dr. Gina Schmitz Calcium [Mass/Vol] 8.8 mg/dL Normal 8.5-10.[address] [facility] Comment on above: Performed By: #### B MP, BNP #### [facility] [address] [place] [address] Dr. Gina Schmitz Chloride [Moles/Vol] 97 mmol/L Critically low 98-107 [facility] Comment on above: Performed By: #### B MP, BNP #### [facility] [address] [place] [address] Dr. Gina Schmitz CO2 [Moles/Vol] 33.1 mmol/L Critically high 21.0-32.0 [facility] Comment on above: Performed By: #### B MP, BNP #### [facility] [address] [place] [address] Dr. Gina Schmitz Creatinine [Mass/Vol] 0.97 mg/dL Normal 0.55-1.02 [facility] Comment on above: Performed By: #### B MP, BNP #### [facility] [address] [place] [address] Dr. Gina Schmitz EGFR-AF CANADIAN >60 Normal >=60 [facility] Comment on above: Performed By: #### B MP, BNP #### [facility] [address] [place] [address] Dr. Gina Schmitz EGFR-NON AF CANADIAN 57 mL/min/1.73m2 Critically low >=60 [facility] Comment on above: Performed By: #### B MP, BNP #### [facility] [address] [place] [address] [address] Gina Schmitz Glucose [Mass/Vol] 99 mg/dL Normal 74-106 [facility] Comment on above: Performed By: #### B MP, BNP #### [facility] [address] [place] [address] [address] Gina Schmitz Potassium [Moles/Vol] 3.0 mmol/L Critically low 3.5-5.1 [facility] Comment on above: Performed By: #### B MP, BNP #### [facility] [address] [place] [address] [address] Gina Schmitz Sodium [Moles/Vol] 138 mmol/L Normal 136-[address] [facility] Comment on above: Performed By: #### B MP, BNP #### [facility] [address] [place] [address] [address] Gina Schmitz Urea nitrogen [Mass/Vol] 29.0 mg/dL Critically high 7.0-18.0 [facility] Comment on above: Performed By: #### B MP, BNP #### [facility] [address] [place] [address] Dr. Gina Schmitz Urea nitrogen/Creatinine [Mass ratio] 29.9 mg/mg Normal [facility] Comment on above: Performed By: #### B MP, BNP #### [facility] [address] [place] [address] Dr. Gina Schmitz XR CHEST 1 Von [...] CROW SHIELDS Date: 2022-09-19 13:42 Normal [facility] BNPon 09-18-2022 Natriuretic peptide B (Bld) [Mass/Vol] 3849.0 pg/mL Critically high <=900.0 [facility] Comment on above: Performed By: #### B MP, HSTROPN, BNP #### [facility] [address] [place] [address] Dr. Gina Schmitz CBC AUTO DIFFon 09-18-2022 BASO # 0.0 103/ul Normal 0.0-0.1 [facility] Comment on above: Performed By: #### C BC #### [facility] [address] [place] [address] Dr. Gina Schmitz Basophils/100 WBC (Bld) 0.1 % Critically low 0.2-2.0 [facility] Comment on above: Performed By: #### C BC #### [facility] [address] [place] [address] Dr. Gina Schmitz EO # 0.0 103/ul Normal 0.0-0.7 [facility] Comment on above: Performed By: #### C BC #### [facility] [address] [place] [address] Dr. Gina Schmitz Eosinophils/100 WBC (Bld) 0.3 % Critically low 0.9-7.0 [facility] Comment on above: Performed By: #### C BC #### [facility] [address] [place] [address] Dr. Gina Schmitz Erythrocyte distribution width (RBC) [Ratio] 14.9 % Normal 11.0-15.0 [facility] Comment on above: Performed By: #### C BC #### [facility] [address] [place] [address] Dr. Gina Schmitz Hematocrit (Bld) [Volume fraction] 41.3 % Normal 36.0-48.0 [facility] Comment on above: Performed By: #### C BC #### [facility] [address] [place] [address] Dr. Gina Schmitz Hemoglobin (Bld) [Mass/Vol] 13.1 g/dL Normal 12.0-16.0 [facility] Comment on above: Performed By: #### C BC #### [facility] [address] [place] [address] Dr. Gina Schmitz IG # 0.03 10e3/ul Normal 0.00-0.03 [facility] Comment on above: Performed By: #### C BC #### [facility] [address] [place] [address] Dr. Gina Schmitz IG % 0.4 % Normal 0.0-0.5 [facility] Comment on above: Performed By: #### C BC #### [facility] [address] [place] [address] Dr. Gina Schmitz LYMPH # 1.3 103/ul Normal 1.2-3.8 [facility] Comment on above: Performed By: #### C BC #### [facility] [address] [place] [address] Dr. Gina Schmitz Lymphocytes/100 WBC (Bld) 19.3 % Critically low 20.5-60.0 [facility] Comment on above: Performed By: #### C BC #### [facility] [address] [place] [address] Dr. Gina Schmitz MANUAL DIFF REQ NO Normal [facility] Comment on above: Performed By: #### C BC #### [facility] [address] [place] [address] Dr. Gina Schmitz MCH (RBC) [Entitic mass] 26.8 pg Normal 26.7-34.0 [facility] Comment on above: Performed By: #### C BC #### [facility] [address] [place] [address] Dr. Gina Schmitz MCHC (RBC) [Mass/Vol] 31.7 g/dL Normal 29.9-35.2 [facility] Comment on above: Performed By: #### C BC #### [facility] [address] [place] [address] Dr. Gina Schmitz MCV (RBC) [Entitic vol] 84.5 fL Normal 81.0-99.0 [facility] Comment on above: Performed By: #### C BC #### [facility] [address] [place] [address] Dr. Gina Schmitz MONO # 0.6 103/ul Normal 0.3-0.8 [facility] Comment on above: Performed By: #### C BC #### [facility] [address] [place] [address] Dr. Gina Schmitz Monocytes/100 WBC (Bld) 9.3 % Normal 1.7-12.0 [facility] Comment on above: Performed By: #### C BC #### [facility] [address] [place] [address] Dr. Gina Schmitz NEUT # 4.9 103/ul Normal 1.4-6.5 [facility] Comment on above: Performed By: #### C BC #### [facility] [address] [place] [address] Dr. Gina Schmitz Neutrophils/100 WBC (Bld) 70.6 % Normal 43.0-75.0 [facility] Comment on above: Performed By: #### C BC #### [facility] [address] [place] [address] Dr. Gina Schmitz Platelet mean volume (Bld) [Entitic vol] 9.9 fL Normal 9.5-13.5 [facility] Comment on above: Performed By: #### C BC #### [facility] [address] [place] [address] Dr. Gina Schmitz PLT 194 103/ul Normal 150-450 [facility] Comment on above: Performed By: #### C BC #### [facility] [address] [place] [address] Dr. Gina Schmitz RBC 4.89 106/ul Normal 4.20-5.40 [facility] Comment on above: Performed By: #### C BC #### [facility] [address] [place] [address] Dr. Gina Schmitz WBC 6.9 103/ul Normal 4.0-11.0 [facility] Comment on above: Performed By: #### C BC #### [facility] [address] [address] [address] Gina Schmitz GLYCOHEMOGLOBIN A1Con 2022 ADA RECOMMENDATION SEE BELOW Normal [facility] Comment on above: Result Comment: ADA RECOMMENDED LIMIT 4.0 - 6.0 ADA THERAPEUTIC TARGET < 7.0 ACTION SUGGESTED > 7.0 Performed By: #### B MONI HSTROPN, BNP #### [facility] [address] [address] [address] Gina Schmitz Glucose [Mass/Vol] 137 mg/dL Normal [facility] Comment on above: Performed By: #### B MONI HSTROPN, BNP #### [facility] [address] [place] [address] Dr. Gina Schmitz HbA1c (Bld) [Mass fraction] 6.4 % Critically high 4.5-6.2 [facility] Comment on above: Performed By: #### B MONI HSTROPN, BNP #### [facility] [address] [address] [address] Gina Schmitz POINT OF CARE GLUCOSEon Glucose [Mass/Vol] 195 mg/dL Critically high 74-106 [facility] Comment on above: Performed By: #### P OCGLUC #### [facility] [address] [place] [address] Dr. Gina Schmitz Glucose [Mass/Vol] 102 mg/dL Normal 74-[address] [facility] Comment on above: Performed By: #### B MP, HSTROPN, BNP #### [facility] [address] [place] [address] Dr. Gina Schmitz Glucose [Mass/Vol] 219 mg/dL Critically high 74-106 [facility] Comment on above: Performed By: #### B MP, HSTROPN, BNP #### [facility] [address] [address] [address] Gina Schmitz PROF CHEM 8 (BAS METB)on Anion gap [Moles/Vol] 12.4 mmol/L Normal [facility] Comment on above: Performed By: #### B MP, HSTROPN, BNP #### [facility] [address] [address] [address] Gina Schmitz Calcium [Mass/Vol] 8.7 mg/dL Normal 8.5-10.[address] [facility] Comment on above: Performed By: #### B MP, HSTROPN, BNP #### [facility] [address] [place] [address] Dr. Gina Schmitz Chloride [Moles/Vol] 99 mmol/L Normal 98-107 [facility] Comment on above: Performed By: #### B MP, HSTROPN, BNP #### [facility] [address] [place] [address] Dr. Gina Schmitz CO2 [Moles/Vol] 27.6 mmol/L Normal 21.0-32.0 [facility] Comment on above: Performed By: #### B MP, HSTROPN, BNP #### [facility] [address] [place] [address] Dr. Gina Schmitz Creatinine [Mass/Vol] 0.95 mg/dL Normal 0.55-1.02 [facility] Comment on above: Performed By: #### B MP, HSTROPN, BNP #### [facility] [address] [place] [address] Dr. Gina Schmitz EGFR-AF CANADIAN >60 Normal >=60 [facility] Comment on above: Performed By: #### B MP, HSTROPN, BNP #### [facility] [address] [place] [address] Dr. Gina Schmitz EGFR-NON AF CANADIAN 58 mL/min/1.73m2 Critically low >=60 [facility] Comment on above: Performed By: #### B MP, HSTROPN, BNP #### [facility] [address] [place] [address] Dr. Gina Schmitz Glucose [Mass/Vol] 149 mg/dL Critically high 74-106 [facility] Comment on above: Performed By: #### B MP, HSTROPN, BNP #### [facility] [address] [place] [address] Dr. Gina Schmitz Potassium [Moles/Vol] 4.0 mmol/L Normal 3.5-5.1 [facility] Comment on above: Performed By: #### B MP, HSTROPN, BNP #### [facility] [address] [place] [address] Dr. Gina Schmitz Sodium [Moles/Vol] 135 mmol/L Critically low 136-145 [facility] Comment on above: Performed By: #### B MP, HSTROPN, BNP #### [facility] [address] [place] [address] Dr. Gina Schmitz Urea nitrogen [Mass/Vol] 32.0 mg/dL Critically high 7.0-18.0 [facility] Comment on above: Performed By: #### B MP, HSTROPN, BNP #### [facility] [address] [place] [address] Dr. Gina Schmitz Urea nitrogen/Creatinine [Mass ratio] 33.7 mg/mg Normal [facility] Comment on above: Performed By: #### B MP, HSTROPN, BNP #### [facility] [address] [place] [address] Dr. Gina Schmitz BNPon 09-17-2022 Natriuretic peptide B (Bld) [Mass/Vol] 10333.0 pg/mL Critically high <=900.0 [facility] Comment on above: Performed By: #### B MP, HSTROPN, BNP #### [facility] [address] [place] [address] Dr. Gina Schmitz CARDIAC SHEYLA 3-6on 3 CK [Catalytic activity/Vol] 58 U/L Normal 26-192 [facility] Comment on above: Performed By: #### B MP, HSTROPN, BNP #### [facility] [address] [place] [address] Dr. Gina Schmitz CK.MB [Mass/Vol] 2.73 ng/mL Normal <=3.60 [facility] Comment on above: Performed By: #### B MP, HSTROPN, BNP #### [facility] [address] [place] [address] Dr. Gina Schmitz HSTROP 46.4 pg/mL Normal 4.0-51.3 [facility] Comment on above: Result Comment: CUT- OFF POINTS HAVE BEEN ESTABLISHED BASED ON THE FOURTH UNIVERSAL DEFINITIONS OF MYOCARDIAL INFARCTION. THE UPPER REFERENCE LIMIT (URL) OF TROPONIN, DEFINED THE 99TH PERCENTILE OF cTnI DISTRIBUTION IN A REFERENCE POPULATION, HAS BEEN CONFIRMED THE DECISION THRESHOLD FOR [place] DIAGNOSIS. Performed By: #### B MP, HSTROPN, BNP #### [facility] [address] [place] [address] Dr. Gina Schmitz CBC AUTO DIFFon 09-17-2022 BASO # 0.0 103/ul Normal 0.0-0.1 [facility] Comment on above: Performed By: #### B MP, HSTROPN, BNP #### [facility] [address] [place] [address] Dr. Gina Schmitz Basophils/100 WBC (Bld) 0.0 % Critically low 0.2-2.0 [facility] Health Comment on above: Performed By: #### B MP, HSTROPN, BNP #### [facility] [address] [place] [address] Dr. Gina Schmitz EO # 0.0 103/ul Normal 0.0-0.7 [facility] Comment on above: Performed By: #### B MP, HSTROPN, BNP #### [facility] [address] [place] [address] Dr. Gina Schmitz Eosinophils/100 WBC (Bld) 0.2 % Critically low 0.9-7.0 [facility] Comment on above: Performed By: #### B MP, HSTROPN, BNP #### [facility] [address] [place] [address] Dr. Gina Schmitz Erythrocyte distribution width (RBC) [Ratio] 15.1 % Critically high 11.0-15.0 [facility] Comment on above: Performed By: #### B MP, HSTROPN, BNP #### [facility] [address] [place], [place] [id number] Dr. Gina Schmitz Hematocrit (Bld) [Volume fraction] 41.4 % Normal 36.0-48.0 [facility] Comment on above: Performed By: #### B MP, HSTROPN, BNP #### [facility] [address] [place] [address] Dr. Gina Schmitz Hemoglobin (Bld) [Mass/Vol] 13.2 g/dL Normal 12.0-16.0 [facility] Comment on above: Performed By: #### B MP, HSTROPN, BNP #### [facility] [address] [place] [address] Dr. Gina Schmitz IG # 0.03 10e3/ul Normal 0.00-0.03 [facility] Comment on above: Performed By: #### B MP, HSTROPN, BNP #### [facility] [address] [place] [address] Dr. Gina Schmitz IG % 0.5 % Normal 0.0-0.5 [facility] Comment on above: Performed By: #### B MP, HSTROPN, BNP #### [facility] [address] [place] [address] Dr. Gina Schmitz LYMPH # 0.6 103/ul Critically low 1.2-3.8 [facility] Comment on above: Performed By: #### B MP, HSTROPN, BNP #### [facility] [address] [place] [address] Dr. Gina Schmitz Lymphocytes/100 WBC (Bld) 9.8 % Critically low 20.5-60.0 [facility] Comment on above: Performed By: #### B MP, HSTROPN, BNP #### [facility] [address] [place] [address] Dr. Gina Schmitz MANUAL DIFF REQ NO Normal [facility] Comment on above: Performed By: #### B MP, HSTROPN, BNP #### [facility] [address] [place] [address] Dr. Gina Schmitz MCH (RBC) [Entitic mass] 26.9 pg Normal 26.7-34.0 [facility] Comment on above: Performed By: #### B MP, HSTROPN, BNP #### [facility] [address] [place] [address] Dr. Gina Schmitz MCHC (RBC) [Mass/Vol] 31.9 g/dL Normal 29.9-35.2 [facility] Comment on above: Performed By: #### B MP, HSTROPN, BNP #### [facility] [address] [place] [address] Dr. Gina Schmitz MCV (RBC) [Entitic vol] 84.3 fL Normal 81.0-99.0 [facility] Comment on above: Performed By: #### B MP, HSTROPN, BNP #### [facility] [address] [place] [address] Dr. Gina Schmitz MONO # 0.2 103/ul Critically low 0.3-0.8 [facility] Comment on above: Performed By: #### B MP, HSTROPN, BNP #### [facility] [address] [place] [address] Dr. Gina Schmitz Monocytes/100 WBC (Bld) 3.7 % Normal 1.7-12.0 [facility] Comment on above: Performed By: #### B MP, HSTROPN, BNP #### [facility] [address] [place] [address] Dr. Gina Schmitz NEUT # 5.1 103/ul Normal 1.4-6.5 [facility] Comment on above: Performed By: #### B MP, HSTROPN, BNP #### [facility] [address] [place] [address] Dr. Gina Schmitz Neutrophils/100 WBC (Bld) 85.8 % Critically high 43.0-75.0 [facility] Comment on above: Performed By: #### B MP, HSTROPN, BNP #### [facility] [address] [place] [address] Dr. Gina Schmitz Platelet mean volume (Bld) [Entitic vol] 10.4 fL Normal 9.5-13.5 [facility] Comment on above: Performed By: #### B MP, HSTROPN, BNP #### [facility] [address] [address] [address] Gina Schmitz PLT 179 103/ul Normal 150-450 [facility] Comment on above: Performed By: #### B MP, HSTROPN, BNP #### [facility] [address] [address] [address] Gina Schmitz RBC 4.91 106/ul Normal 4.20-5.40 [facility] Comment on above: Performed By: #### B MP, HSTROPN, BNP #### [facility] [address] [address] [address] Gina Schmitz WBC 5.9 103/ul Normal 4.0-11.0 [facility] Comment on above: Performed By: #### B MP, HSTROPN, BNP #### [facility] [address] [address] [address] Gina Schmitz ECHOCARDIO M/2D COMPLETEon 0 09-17-2022 ECHOCARDIO M/2D COMPLETE Patient: JIMMIE DENG Exam Date: 09/17/2022 : 1950 Gender:F Ordering : AMENA HUITRON Admission #: [id number] Family : SHAIKH Abilio CARROLL . Order #: [id number] CLICK HERE TO VIEW EXAM ECHOCARDIOGRAM REPORT [...] Sharma M.D. on 09/19/2022 at 13:08 Normal [facility] POINT OF CARE GLUCOSEon Glucose [Mass/Vol] 195 mg/dL Critically high 74-106 [facility] Comment on above: Performed By: #### B MONI HSTROPN, BNP #### [facility] [address] [address] [address] Gina Schmitz Glucose [Mass/Vol] 152 mg/dL Critically high 74-106 [facility] Comment on above: Performed By: #### P OCGLUC #### [facility] [address] [place] [address] Dr. Gina Schmitz Glucose [Mass/Vol] 192 mg/dL Critically high 74-106 [facility] Comment on above: Performed By: #### P OCGLUC #### [facility] [address] [address] [address] Gina Schmitz PROF CHEM 8 (BAS METB)on Anion gap [Moles/Vol] 11.2 mmol/L Normal [facility] Comment on above: Performed By: #### B MONI HSTROPN, BNP #### [facility] [address] [place] [address] Dr. Gina Schmitz Calcium [Mass/Vol] 8.7 mg/dL Normal 8.5-10.1 [facility] Comment on above: Performed By: #### B MP, HSTROPN, BNP #### [facility] [address] [address] [address] Gina Schmitz Chloride [Moles/Vol] 103 mmol/L Normal 98-107 [facility] Comment on above: Performed By: #### B MP, HSTROPN, BNP #### [facility] [address] [address] [address] Gina Schmitz CO2 [Moles/Vol] 28.3 mmol/L Normal 21.0-32.0 [facility] Comment on above: Performed By: #### B MP, HSTROPN, BNP #### [facility] [address] [place] [address] Dr. Gina Schmitz Creatinine [Mass/Vol] 0.69 mg/dL Normal 0.55-1.02 [facility] Comment on above: Performed By: #### B MP, HSTROPN, BNP #### [facility] [address] [address] [address] Gina Schmitz EGFR-AF CANADIAN >60 Normal >=60 [facility] Comment on above: Performed By: #### B MP, HSTROPN, BNP #### [facility] [address] [place] [address] Dr. Gina Schmitz EGFR-NON AF CANADIAN >60 Normal >=60 [facility] Comment on above: Performed By: #### B MP, HSTROPN, BNP #### [facility] [address] [address] [address] Gina Schmitz Glucose [Mass/Vol] 171 mg/dL Critically high 74-106 [facility] Comment on above: Performed By: #### B MP, HSTROPN, BNP #### [facility] [address] [address] [address] Gina Schmitz Potassium [Moles/Vol] 3.5 mmol/L Normal 3.5-5.1 [facility] Comment on above: Performed By: #### B MP, HSTROPN, BNP #### [facility] [address] [address] [address] Gina Schmitz Sodium [Moles/Vol] 139 mmol/L Normal 136-[address] [facility] Comment on above: Performed By: #### B MP, HSTROPN, BNP #### [facility] [address] [place] [address] Dr. Gina Schmitz Urea nitrogen [Mass/Vol] 11.0 mg/dL Normal 7.0-18.0 [facility] Comment on above: Performed By: #### B MP, HSTROPN, BNP #### [facility] [address] [place] [address] Dr. Gina Schmitz Urea nitrogen/Creatinine [Mass ratio] 15.9 mg/mg Normal [facility] Comment on above: Performed By: #### B MP, HSTROPN, BNP #### [facility] [address] [place] [address] Dr. Gina Schmitz BNPon 09-16-2022 Natriuretic peptide B (Bld) [Mass/Vol] 7623.0 pg/mL Critically high <=900.0 [facility] Comment on above: Performed By: #### B MP, HSTROPN, BNP #### [facility] [address] [place] [address] Dr. Gina Schmitz CARDIAC SHEYLA 3-6on 3 CK [Catalytic activity/Vol] 57 U/L Normal 26-192 [facility] Comment on above: Performed By: #### B MP, HSTROPN, BNP #### [facility] [address] [place] [address] Dr. Gina Schmitz CK.MB [Mass/Vol] 3.07 ng/mL Normal <=3.60 [facility] Comment on above: Performed By: #### B MP, HSTROPN, BNP #### [facility] [address] [place] [address] Dr. Gina Schmitz HSTROP 59.7 pg/mL Critically high 4.0-51.3 [facility] Comment on above: Result Comment: CUT- OFF POINTS HAVE BEEN ESTABLISHED BASED ON THE FOURTH UNIVERSAL DEFINITIONS OF MYOCARDIAL INFARCTION. THE UPPER REFERENCE LIMIT (URL) OF TROPONIN, DEFINED THE 99TH PERCENTILE OF cTnI DISTRIBUTION IN A REFERENCE POPULATION, HAS BEEN CONFIRMED THE DECISION THRESHOLD FOR [place] DIAGNOSIS. Performed By: #### B MP, HSTROPN, BNP #### [facility] [address] [place] [address] Dr. Gina Schmitz CBC AUTO DIFFon 09-16-2022 BASO # 0.0 103/ul Normal 0.0-0.1 [facility] Comment on above: Performed By: #### B MP, HSTROPN, BNP #### [facility] [address] [place] [address] Dr. Gina Schmitz Basophils/100 WBC (Bld) 0.2 % Normal 0.2-2.0 [facility] Comment on above: Performed By: #### B MP, HSTROPN, BNP #### [facility] [address] [place] [address] Dr. Gina Schmitz EO # 0.1 103/ul Normal 0.0-0.7 [facility] Comment on above: Performed By: #### B MP, HSTROPN, BNP #### [facility] [address] [place] [address] Dr. Gina Schmitz Eosinophils/100 WBC (Bld) 0.6 % Critically low 0.9-7.0 [facility] Comment on above: Performed By: #### B MP, HSTROPN, BNP #### [facility] [address] [place] [address] Dr. Gina Schmitz Erythrocyte distribution width (RBC) [Ratio] 15.1 % Critically high 11.0-15.0 [facility] Comment on above: Performed By: #### B MP, HSTROPN, BNP #### [facility] [address] [place] [address] Dr. Gina Schmitz Hematocrit (Bld) [Volume fraction] 44.0 % Normal 36.0-48.0 [facility] Comment on above: Performed By: #### B MP, HSTROPN, BNP #### [facility] [address] [place] [address] Dr. Gina Schmitz Hemoglobin (Bld) [Mass/Vol] 14.4 g/dL Normal 12.0-16.0 [facility] Comment on above: Performed By: #### B MP, HSTROPN, BNP #### [facility] [address] [place] [address] Dr. Gina Schmitz IG # 0.03 10e3/ul Normal 0.00-0.03 [facility] Comment on above: Performed By: #### B MP, HSTROPN, BNP #### [facility] [address] [place] [address] Dr. Gina Schmitz IG % 0.3 % Normal 0.0-0.5 [facility] Comment on above: Performed By: #### B MP, HSTROPN, BNP #### [facility] [address] [place] [address] Dr. Gina Schmitz LYMPH # 1.7 103/ul Normal 1.2-3.8 [facility] Comment on above: Performed By: #### B MP, HSTROPN, BNP #### [facility] [address] [place] [address] Dr. Gina Schmitz Lymphocytes/100 WBC (Bld) 17.2 % Critically low 20.5-60.0 [facility] Comment on above: Performed By: #### B MP, HSTROPN, BNP #### [facility] [address] [place] [address] Dr. Gina Schmitz MANUAL DIFF REQ NO Normal [facility] Comment on above: Performed By: #### B MP, HSTROPN, BNP #### [facility] [address] [place] [address] Dr. Gina Schmitz MCH (RBC) [Entitic mass] 27.3 pg Normal 26.7-34.0 [facility] Comment on above: Performed By: #### B MP, HSTROPN, BNP #### [facility] [address] [place] [address] Dr. Gina Schmitz MCHC (RBC) [Mass/Vol] 32.7 g/dL Normal 29.9-35.2 [facility] Comment on above: Performed By: #### B MP, HSTROPN, BNP #### [facility] [address] [place] [address] Dr. Gina Schmitz MCV (RBC) [Entitic vol] 83.5 fL Normal 81.0-99.0 [facility] Comment on above: Performed By: #### B MP, HSTROPN, BNP #### [facility] [address] [place] [address] Dr. Gina Schmitz MONO # 1.0 103/ul Critically high 0.3-0.8 [facility] Comment on above: Performed By: #### B MP, HSTROPN, BNP #### [facility] [address] [place] [address] Dr. Gina Schmitz Monocytes/100 WBC (Bld) 10.4 % Normal 1.7-12.0 [facility] Comment on above: Performed By: #### B MP, HSTROPN, BNP #### [facility] [address] [place] [address] Dr. Gina Schmitz NEUT # 6.8 103/ul Critically high 1.4-6.5 [facility] Comment on above: Performed By: #### B MP, HSTROPN, BNP #### [facility] [address] [place] [address] Dr. Gina Schmitz Neutrophils/100 WBC (Bld) 71.3 % Normal 43.0-75.0 [facility] Comment on above: Performed By: #### B MP, HSTROPN, BNP #### [facility] [address] [place] [address] Dr. Gina Schmitz Platelet mean volume (Bld) [Entitic vol] 10.0 fL Normal 9.5-13.5 [facility] Comment on above: Performed By: #### B MP, HSTROPN, BNP #### [facility] [address] [place] [address] Dr. Gina Schmitz PLT 217 103/ul Normal 150-450 [facility] Comment on above: Performed By: #### B MP, HSTROPN, BNP #### [facility] [address] [place] [address] Dr. Gina Schmitz RBC 5.27 106/ul Normal 4.20-5.40 [facility] Comment on above: Performed By: #### B MP, HSTROPN, BNP #### [facility] [address] [place] [address] Dr. Gina Schmitz WBC 9.6 103/ul Normal 4.0-11.0 [facility] Comment on above: Performed By: #### B MP, HSTROPN, BNP #### [facility] [address] [place] [address] Dr. Gina Schmitz Covid-19 PCR ([facility])on SARS-CoV-2 (COVID-19) RNA MECHE+probe Ql (Unsp spec) Not detected Normal NOT DETECTED [facility] Comment on above: Result Comment: This test is not yet approved or cleared by the [place] FDA. When there are no FDA-approved or cleared tests available, and other criteria are met, FDA can make tests available under an emergency access mechanism called an Emergency Use Authorization (EUA). The EUA for this test is supported by the [employer] of Health and Human Service's (HHS's) declaration [...] By: #### B MP, HSTROPN, BNP #### [facility] [address] [place] [address] Dr. Gina Schmitz PROF CHEM 8 (BAS METB)on 05- 01-2023 Anion gap [Moles/Vol] 16.3 mmol/L Normal [facility] Comment on above: Performed By: #### B MP, HSTROPN, BNP #### [facility] [address] [place] [address] Dr. Gina Schmitz Calcium [Mass/Vol] 8.8 mg/dL Normal 8.5-10.[address] [facility] Comment on above: Performed By: #### B MP, HSTROPN, BNP #### [facility] [address] [place] [address] Dr. Gina Schmitz Chloride [Moles/Vol] 100 mmol/L Normal 98-107 [facility] Comment on above: Performed By: #### B MP, HSTROPN, BNP #### [facility] [address] [place] [address] Dr. Gina Schmitz CO2 [Moles/Vol] 23.3 mmol/L Normal 21.0-32.0 [facility] Comment on above: Performed By: #### B MP, HSTROPN, BNP #### [facility] [address] [place] [address] Dr. Gina Schmitz Creatinine [Mass/Vol] 0.79 mg/dL Normal 0.55-1.02 [facility] Comment on above: Performed By: #### B MP, HSTROPN, BNP #### [facility] [address] [place] [address] Dr. Gina Schmitz EGFR-AF CANADIAN >60 Normal >=60 [facility] Comment on above: Performed By: #### B MP, HSTROPN, BNP #### [facility] [address] [place] [address] Dr. Gina Schmitz EGFR-NON AF CANADIAN >60 Normal >=60 [facility] Comment on above: Performed By: #### B MP, HSTROPN, BNP #### [facility] [address] [place] [address] Dr. Gina Schmitz Glucose [Mass/Vol] 196 mg/dL Critically high 74-106 T [facility] Comment on above: Performed By: #### B MP, HSTROPN, BNP #### [facility] [address] [place] [address] Dr. Gina Shcmitz Potassium [Moles/Vol] 3.6 mmol/L Normal 3.5-5.1 [facility] Comment on above: Performed By: #### B MP, HSTROPN, BNP #### [facility] [address] [place] [address] Dr. Gina Schmitz Sodium [Moles/Vol] 136 mmol/L Normal 136-[address] [facility] Comment on above: Performed By: #### B MP, HSTROPN, BNP #### [facility] [address] [place] [address] Dr. Gina Schmitz Urea nitrogen [Mass/Vol] 10.0 mg/dL Normal 7.0-18.0 [facility] Comment on above: Performed By: #### B MP, HSTROPN, BNP #### [facility] [address] [place] [address] Dr. Gina Schmitz Urea nitrogen/Creatinine [Mass ratio] 12.7 mg/mg Normal [facility] Comment on above: Performed By: #### B MP, HSTROPN, BNP #### [facility] [address] [place] [address] Dr. Gina Schmitz SYMPTOMATIC COVID-19 ANTIGEN on 09-16-2022 EUA Statement SEE BELOW Normal [facility] Comment on above: Result Comment: This [...] sooner. Performed By: #### C VDAGS #### [facility] [address] [address] [address] Gina Schmitz SARS-CoV-2 (COVID-19) RNA MECHE+probe Ql (Unsp spec) Negative Normal NEGATIVE [facility] Comment on above: Performed By: #### C VDAGS #### [facility] [address] [address] [address] Gina Schmitz TROPONIN, HIGH SENSITIVITYon 09-16-2022 HSTROP 53.9 pg/mL Critically high 4.0-51.3 [facility] Comment on above: Result Comment: CUT- OFF POINTS HAVE BEEN ESTABLISHED BASED ON THE FOURTH UNIVERSAL DEFINITIONS OF MYOCARDIAL INFARCTION. THE UPPER REFERENCE LIMIT (URL) OF TROPONIN, DEFINED THE 99TH PERCENTILE OF cTnI DISTRIBUTION IN A REFERENCE POPULATION, HAS BEEN CONFIRMED THE DECISION THRESHOLD FOR [place] DIAGNOSIS. Performed By: #### B MP, HSTROPN, BNP #### [facility] [address] [address] [address] Gina Schmitz XR CHEST 1 Von [...] LUIS ENRIQUE ARREOLA Date: 2022-09-16 19:45 Normal [facility] Blood Urea Nitrogenon 2021 Urea nitrogen [Mass/Vol] 7 mg/dL Low 9-23 [facility] Comment on above: Performed By: #### P P, CBC, LYTES, BUN, CREAT #### [facility] [address] COVID-19 Antigenon 2 COVID-19 Antigen [facility] [...] its performance Abena Disclaimer characteristic determined by [employer] and Abena Disclaimer validated at [facility]. This Abena Disclaimer test has not been [...] Emergency Use Authorization for Coronavirus Abena Disclaimer is during the Public Health Emergency) Abena Disclaimer [...] is terminated or revoked sooner. PERFORMED BY: [place] [address] PATHOLOGIST [employer] RYAN BARRIENTOS M.D. Normal [facility] Comment on above: Performed By: #### C OVID-19 ABENA, SOFIANEG #### [facility] [address] [id number] [facility] Coagulation Profileon 2021 aPTT Coag (Bld) [Time] 32.3 s Normal 25.1-36.5 [facility] Comment on above: Result Comment: PERF ORMED BY: [place] [address] PATHOLOGIST [employer] RYAN BARRIENTOS M.D. Performed By: #### P P, CBC, LYTES, BUN, CREAT #### [facility] [address] [id number] [facility] INR Coag (PPP) [Relative time] 1.0 {INR} Normal [facility] Comment on above: Result Comment: INR Therapeutic [...] P P, CBC, LYTES, BUN, CREAT #### [address] PT Coag (PPP) [Time] 11.5 s Normal 9.0-12.9 [facility] Comment on above: Performed By: #### P P, CBC, LYTES, BUN, CREAT #### [address] Complete Blood Count Auto Di ffon 08-03-2021 Basophils (Bld) [#/Vol] 0.0 10*3/uL Normal 0.0-0.2 [facility] Comment on above: Result Comment: PERF ORMED BY: [place] [address] PATHOLOGIST [employer]PER RYAN BARRIENTOS M.D. Performed By: #### P P, CBC, LYTES, BUN, CREAT #### [address] Basophils/100 WBC (Bld) 0.2 % Normal . [facility] Comment on above: Performed By: #### P P, CBC, LYTES, BUN, CREAT #### [address] Eosinophils (Bld) [#/Vol] 0.1 10*3/uL Normal 0.0-0.45 [facility] Comment on above: Performed By: #### P P, CBC, LYTES, BUN, CREAT #### [address] Eosinophils/100 WBC (Bld) 1.7 % Normal . [facility] Comment on above: Performed By: #### P P, CBC, LYTES, BUN, CREAT #### [address] Erythrocyte distribution width (RBC) [Ratio] 14.6 % Normal 11.9-15.3 [facility] Comment on above: Performed By: #### P P, CBC, LYTES, BUN, CREAT #### [address] Hematocrit (Bld) [Volume fraction] 42.7 % Normal 34.0-46.4 [facility] Comment on above: Performed By: #### P P, CBC, LYTES, BUN, CREAT #### [address] Hemoglobin (Bld) [Mass/Vol] 14.7 g/dL Normal 11.8-15.4 [facility] Comment on above: Performed By: #### P P, CBC, LYTES, BUN, CREAT #### [address] Lymphocytes (Bld) [#/Vol] 1.3 10*3/uL Normal 1.00-4.8 [facility] Comment on above: Performed By: #### P P, CBC, LYTES, BUN, CREAT #### [address] Lymphocytes/100 WBC (Bld) 21.7 % Normal . [facility] Comment on above: Performed By: #### P P, CBC, LYTES, BUN, CREAT #### [address] MCH (RBC) [Entitic mass] 28.9 pg Normal 24.7-34.3 [facility] Comment on above: Performed By: #### P P, CBC, LYTES, BUN, CREAT #### [address] MCV (RBC) [Entitic vol] 84.1 fL Normal 80-100 [facility] Comment on above: Performed By: #### P P, CBC, LYTES, BUN, CREAT #### [address] Mean Corpuscular HGB Conc 34.4 g/dL Normal 32.0-35.0 [facility] Comment on above: Performed By: #### P P, CBC, LYTES, BUN, CREAT #### [address] Monocytes (Bld) [#/Vol] 0.5 10*3/uL Normal 0.0-0.8 [facility] Comment on above: Performed By: #### P P, CBC, LYTES, BUN, CREAT #### [address] Monocytes/100 WBC (Bld) 9.1 % Normal . [facility] Comment on above: Performed By: #### P P, CBC, LYTES, BUN, CREAT #### [address] Neutrophils (Bld) [#/Vol] 3.9 10*3/uL Normal 1.8-7.7 [facility] Comment on above: Performed By: #### P P, CBC, LYTES, BUN, CREAT #### [address] Neutrophils/100 WBC (Bld) 67.3 % Normal . [facility] Comment on above: Performed By: #### P P, CBC, LYTES, BUN, CREAT #### [address] Nucleated RBC/100 WBC (Bld) [Ratio] 0.1 % Normal 0-0.5 [facility] Comment on above: Performed By: #### P P, CBC, LYTES, BUN, CREAT #### [address] Platelet mean volume (Bld) [Entitic vol] 8.3 fL Normal 6.3-10.7 [facility] Comment on above: Performed By: #### P P, CBC, LYTES, BUN, CREAT #### [place] [address] [place] Platelets (Bld) [#/Vol] 212 10*3/uL Normal 150-450 [facility] Comment on above: Performed By: #### P P, CBC, LYTES, BUN, CREAT #### [address] [address] [place] RBC (Bld) [#/Vol] 5.08 10*6/uL High 3.60-5.[address] [facility] Comment on above: Performed By: #### P P, CBC, LYTES, BUN, CREAT #### [address] WBC (Bld) [#/Vol] 5.8 10*3/uL Normal 4.5-11.0 [facility] Comment on above: Performed By: #### P P, CBC, LYTES, BUN, CREAT #### [address] Creatinineon 08-03-2021 Creatinine [Mass/Vol] 0.57 mg/dL Normal 0.44-1.03 [facility] Comment on above: Performed By: #### P P, CBC, LYTES, BUN, CREAT #### [address] Estimated GFR ( Adela > 60 Normal [facility] Comment on above: Result Comment: GFR estimated reference range: According to KDOQI guidelines, <60 ml/min/1.73m2 is sufficient to diagnose a patient with chronic kidney disease. PERFORMED BY: [place] [address] PATHOLOGIST VARNISH MAKER HELPER RYAN BARRIENTOS M.D. Performed By: #### P P, CBC, LYTES, BUN, CREAT #### [address] Estimated GFR (Non- Am > 60 Normal [facility] Comment on above: Performed By: #### P P, CBC, LYTES, BUN, CREAT #### [address] ECG 12 lead ECGon 08-03-2021 ECG 12 lead ECG [facility] Main [place] [address] [place] [address] Electrocardiograph Report Signed Patient: Jimmie Deng MR#: [id number] : 1950 Acct:[id number] Age/Sex: 70 / F ADM Date: 08/03/21 Loc: PS Room: Type: [facility] CLI Attending Dr: Sejal Lucas DO Ordering Provider: [...] Electronically Signed By:MARY REYNAGA DO Transcribed By: [facility] Signed By Mary Reynaga DO 08/03 1659 Normal [facility] Electrolyteson 08-03-2021 Chloride [Moles/Vol] 97 mmol/L Normal 95-114 [facility] Comment on above: Performed By: #### P P, CBC, LYTES, BUN, CREAT #### [facility] [address] [place] [address] [place] CO2 [Moles/Vol] 24.9 mmol/L Normal 22.0-30.0 [facility] Comment on above: Performed By: #### P P, CBC, LYTES, BUN, CREAT #### [facility] [address] [place] [id number] [place] Potassium [Moles/Vol] 3.8 mmol/L Normal 3.5-5.1 [facility] Comment on above: Performed By: #### P P, CBC, LYTES, BUN, CREAT #### [facility] [address] [place] [id number] [place] Sodium [Moles/Vol] 132 mmol/L Low 136-146 [facility] Comment on above: Performed By: #### P P, CBC, LYTES, BUN, CREAT #### [facility] [address] [place] [address] [facility] Laboratory - Microbiology an d Antimicrobial susceptibilityon 08-03-2021 SARS-CoV-2 (COVID-19) RNA MECHE+probe Ql (Unsp spec) [facility] 250 DO Work Phone: No Panel Informationon 08-03 32.3\S\32.3 Normal 25.1-36.5 [facility] 250 DO Work Phone: Comment on above: PERFORMED BY:[facility] [place], [place] [address], [place] [phone] MEDICAL DIRECTORRYAN BARRIENTOS M.D. 1.0\S\1.0 Normal [facility] Work Phone: Comment on [...] valves: 3 - 4.5 11.5\S\11.5 Normal 9.0-12.9 [facility] Work Phone: 67.3\S\67.3 Normal . [facility] DO Work Phone: [phone] 8.3\S\8.3 Normal 6.3-10.7 [facility] DO Work Phone: [phone] 212\S\212 Normal 150-450 [facility] DO Work Phone: 14.6\S\14.6 Normal 11.9-15.3 [facility] 250 DO Work Phone: 34.4\S\34.4 Normal 32.0-35.0 [facility] 250 DO Work Phone: 28.9\S\28.9 Normal 24.7-34.3 [facility] 250 DO Work Phone: [phone] 3.9\S\3.9 Normal 1.8-7.7 [facility] 250 DO Work Phone: 0.1\S\0.1 Normal 0.0-0.45 [facility] 250 DO Work Phone: [phone] 0.2\S\0.2 Normal . [facility] 250 DO Work Phone: 1.7\S\1.7 Normal . [facility] 250 DO Work Phone: [phone] 9.1\S\9.1 Normal . [facility] 250 DO Work Phone: 21.7\S\21.7 Normal . [facility] 250 DO Work Phone: [phone] 0.0\S\0.0 Normal 0.0-0.2 [facility] 250 DO Work Phone: [phone] Comment on above: PERFORMED BY:[facility] [place], [place] [phone] MEDICAL DIRECTORRYAN BARRIENTOS M.D. 0.5\S\0.5 Normal 0.0-0.8 [facility] 250 DO Work Phone: [phone] 1.3\S\1.3 Normal 1.00-4.8 [facility] 250 DO Work Phone: [phone] 84.1\S\84.1 Normal 80-100 [facility] 250 DO Work Phone: [phone] 42.7\S\42.7 Normal 34.0-46.4 [facility] 250 DO Work Phone: [phone] 14.7\S\14.7 Normal 11.8-15.4 [facility] 250 DO Work Phone: [phone] 5.08\S\5.08 above high threshold 3.60-5.00 [facility] 250 DO Work Phone: [phone] 5.8\S\5.8 Normal 3.8-11.6 [facility] 250 DO Work Phone: [phone] 24.9\S\24.9 Normal 22.0-30.0 [facility] 250 DO Work Phone: [phone] 97\S\97 Normal 95-114 [facility] 250 DO Work Phone: [phone] 3.8\S\3.8 Normal 3.5-5.1 [facility] 250 DO Work Phone: [phone] 132\S\132 below low threshold 136-146 [facility] 250 DO Work Phone: [phone] 7\S\7 below low threshold 9-23 [facility] 250 DO Work Phone: [phone] > 60 Normal [facility] 250 DO Work Phone: [phone] Comment on above: GFR estimated refere nce range: According to KDOQI guidelines, <60 ml/min/1.73m2 is sufficient to diagnose a patient with chronic kidney disease.PERFORMED BY:[facility], [place] [phone] MEDICAL DIRECTORRYAN BARRIENTOS M.D. 0.57\S\0.57 Normal 0.44-1.03 [facility] 250 DO Work Phone: [phone] Negative Normal Negative [facility] 250 DO Work Phone: Comment on above: This is a duplicate Abena SARS Antigen (ED) result to be used for statistical tracking purpose only.PERFORMED BY:[facility]1111 [facility], [place] [phone] MEDICAL DIRECTORRYAN BARRIENTOS M.D. Abena Ag Negativeon 08-04-19 22 Abena Ag Negative Negative Normal Negative [facility] Comment on above: Result Comment: This is a duplicate Abena SARS Antigen (ED) result to be used for statistical tracking purpose only. PERFORMED BY: [facility] [address] [place] [address] PATHOLOGIST VARNISH MAKER HELPER RYAN BARRIENTOS M.D. 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) (I25.10) History of PTCA (V45.82) (Z98.61) History of NJ (myocardial infarction) (412) (I25.2) PVD (peripheral vascular disease) (443.9) (I73.9) COPD (chronic obstructive pulmonary disease) (496) (J44.9) Overweight with body mass index (BMI) of 29 to 29.9 in adult (278.02,V85.25) (E66.3,Z68.29) Current every day smoker (305.1) (F17.200) 5 cigs a day Pre-op testing (V72.84) (Z01.818) Orders 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 Iglesia Lucas DO. All medical record entries made by the Scribe were at my direction and personally dictated [...] for routine follow-up. She sustained an inferior NJ in May 2019 with revascularization of the [...] bowel habits (more content not included)... Normal [facility] Tobacco Screening.on 022 Fall risk assessment a) No falls within the last year [facility] y 250 DO Work Phone: Tobacco use status [facility] a) Yes [facility] 250 DO Work Phone: Tobacco Screening. Yes [facility] 250 DO Work Phone: Vital Signs Date Time Vital Sign Value Performing Clinician Ifrah sanches 06-06-2021 10:50-0500 Body height 161.29 cm Savanna Carter Work Phone: [facility] 250 DO Work Phone: 06-06-2021 10:50-0500 Body mass index (BMI) [Ratio] 29.64 kg/m2 Savanna Carter Work Phone: [facility] [place] 250 DO Work Phone: 06-06-2021 10:50-0500 Body surface area Derived from formula 1.82 m2 Savanna Carter Work Phone: [facility] [place] 250 DO Work Phone: 06-06-2021 10:50-0500 Body weight 77.11 kg Savanna Carter Work Phone: [facility] 250 DO Work Phone: 06-06-2021 10:50-0500 Diastolic blood pressure 83 mm[Hg] Savanna Carter Work Phone: [facility] [place] 250 DO Work Phone: 06-06-2021 10:50-0500 Heart rate 75 /min Savanna Carter Work Phone: [facility] [place] 250 DO Work Phone: 06-06-2021 10:50-0500 Systolic blood pressure 134 mm[Hg] Savanna Carter Work Phone: [facility] [place] 250 DO Work Phone: Encounters Encounter Date Encounter Type Care Provider Facility Start: 11-18-2024 End: 11-18-2024 ambulatory AB [facility] Start: 07-12-2024 End: 07-12-2024 ambulatory [facility] Start: 01-07-2024 End: 01-07-2024 ambulatory [facility] Start: 10-02-2022 ambulatory SAVANNA CARTER Facili ty:H1 Start: 09-17-2022 End: 09-19-2022 Evaluation and management of inpatient SHAIKH Fidelia GLEN Facility:[facility] Start: 10-25-2021 Rx Renewal Savanna Mcdonough rt Work Phone: [facility] 250 DO Work Phone: Start: 08-07-2021 Chart Update Savanna Mcdonough rt Work Phone: [facility] 250 DO Work Phone: Start: 08-07-2021 End: 08-08-2021 [facility] Start: 08-03-2021 End: 08-03-2021 ambulatory W [facility] Facility:[facility] Start: 07-05-2021 Telephone encounter Savanna brennan Work Phone: [facility] 250 DO Work Phone: Start: 06-06-2021 Office outpatient vi sit 25 minutes Savannaprabhu Carter Work Phone: [facility] 250 DO Work Phone: Patient encounter status Savanna Carter Work Phone: [facility] 250 DO Work Phone: Procedures Date Procedure Procedure Detail Performing Clinician Cardiac catheterization Mis Carter Work Phone: History of percutane ous transluminal coronary angioplasty History of PTCA Savannaprabhu Carter Work Phone: Total colonoscopy Savanna Reyes ronnyambreencisco Work Phone: Comment on above: Denied: History of C omplete Colonoscopy; Plan of Treatment Date Care Activity Detail Author Start: 11-22-2021 [facility], Provider: Iglesia Lucas, Status: Pen, Time: 10:30 AM [facility], Provider: Iglesia Lucas, Status: Dejan, Time: 10:30 AM [facility] 250 DO Work Phone: Start: [facility]: Iglesia Lucas, Status: Pen, Time: 9:00 AM [facility], Provider: Iglesia Lucas, Status: Pen, Time: 9:00 AM [facility] 250 DO Work Phone: Immunizations Immunization Date Immunization Notes Care Provider Fa frankie 10-04-2020 pneumococcal conjuga te vaccine, 13 valent Savanna Carter Work Phone: [facility] 250 DO Work Phone: 06-09-2019 influenza virus vaccine, unspecified formulation Savanna Carter Work Phone: [facility] 250 DO Work Phone: 06-09-2019 influenza, high dose seasonal, preservative-free Savanna Carter Work Phone: [facility] 250 DO Work Phone: Payers Date Payer Category Payer Private Health Insurance [facility] [id number] 2021 Self-pay 1957 Medicare [id number] 1950 Unknown [id number] [id number] 1950 Unknown [id number] [id number] [id number] Unknown [employer] Unknown [id number] [id number] [id number] Unknown [id number] [id number] Social History Date Type Detail Facility Caffeine use Caffeine use [facility] 250 DO Work Phone: Comment on above: 3 coffee daily, occa sional soda; 5 cigs a day; Progress note 11-18-2024 Note Date & Type Note Facility 11-18-2024 Note [facility] Cardiology Clinic Note Chief Complaint: Patient is here today for a 3 month follow up with labs. Patient states she feels fine, on hot days patients states she gets SOB if she's outside moving around. Patient states he has had a weight gain over the last few months. Patient denies leg swelling, chest pain, dizziness, and fatigue. HPI: Jimmie Deng is a 74 y.o. female with a past medical history including CAD with inferior STEMI s/p PCI, HFrEF, and PVD. She presents to Cardiology today for routine follow up. She has no significant chest pain, she denies shortness of breath. She has no orthopnea or paroxysmal external dyspnea. She does complain of left calf discomfort on walking that resolves with rest. This is stable. She has no skin loss or ulcers. Review of Systems Constitutional: Positive for weight gain. Respiratory: Positive for shortness of breath (on hot days). Past Medical History She has a past medical history of CHF (congestive heart failure) ([facility]), COPD (chronic obstructive pulmonary disease) ([facility]), Coronary artery disease, Hyperlipidemia, Hypertension, and Myocardial infarction ([facility]). Surgical History She has a past surgical history that includes Cardiac catheterization; Coronary stent placement; and Vein Surgery. Social History She reports that she quit smoking about 2 years ago. Her smoking use included cigarettes. She has never used smokeless tobacco. She reports that she does not currently use alcohol. No history on file for drug use. Family History Family History[1] Allergies Azithromycin Medications Current Medications[2] Last Recorded Vitals BP 129/71 (BP Location: Right arm, Patient Position: Sitting) Pulse 71 Ht 1.6 m (5' 3 ) Wt 82.1 kg (181 lb) SpO2 95% BMI 32.06 kg/m??? Physical Examination: GENERAL: alert and oriented x3, well developed, in no acute distress. HEAD: atraumatic, normocephalic. EYES: ROHIT, EOMI. NECK: trachea midline, no JVD present, no carotid bruits present. CARDIAC: S1, S2 present. RRR. No murmur, rubs, or gallops. RESPIRATORY: CTAB, no increased effort of breathing, no rales, rhonchi, or wheezing. ABDOMEN: soft, nontender, nondistended. EXTREMITIES: no lower extremity edema, peripheral pulses are 2+ bilaterally. No rash/skin discoloration present. NEURO: strength/sensation equal and symmetric in bilateral upper and lower extremities. PSYCH: appropriate mood, affect, and judgement. Investigations: Labs: Awaiting lab results today Addendum- renal [...] of lung nodules or masses. No significant abnormal (more content not included)... [facility] Progress note 07-12-2024 Note Date & Type Note Facility 07-12-2024 Note [facility] SS NOTE HPI: Jimmie Deng is a 73 y.o. [...] PVD, and HFiEF. She's been out [facility] now she says. Had labs [...] mitral annular calcification. Moderate to severe mitral regurgita (more content not included)... [facility] Progress note 01-07-2024 Note Date & Type Note Facility 01-07-2024 Note [facility] SS NOTE Pt is here [...] hypertension. RVSP 49 (more content not included)... [facility] Clinical Note 09-18-2022 Note Date & [...] Follow-up thyroid ultrasound is recommended. There is ejqoc-vz-tlbwehcb size bilateral pleural effusions. There is associated compressive atelectasis adjacent to the effusions, left greater than right. No evidence of lung nodules or masses. No significant abnormalities are identified of the visualized osseous structures. No significant abnormalities are identified of the visualized portion of the upper abdomen. IMPRESSION: 1. Qimrs-ep-ezzmtagc size bilateral pleural effusions 2. Findings most consistent with associated compressive atelectasis 3. Vascular calcification including a large amount of coronary calcification 4. Heterogeneous mass of the left aspect of the thyroid. Follow-up thyroid ultrasound recommended for further characterization. Electronically authenticated by: ADRIANA DAMIAN Date: 2022-09-18 07:30 [facility] Chief Complaint * JIMMIE DENG is being seen for a 6 month follow-up of. * Patient is a 70-year-old female who returns for routine follow-up. She sustained an inferior NJ in May 2019 with revascularization of the [...] section and content) DATE CREATED AUTHOR 06/07/2021 [facility] DATE CREATED AUTHOR AUTHOR'S ORGANIZ ATION 06/22/2022 [facility] DATE CREATED AUTHOR AUTHOR'S ORGANIZ ATION 10/02/2022 [facility] DATE CREATED AUTHOR AUTHOR'S ORGANIZ ATION 11/20/2024 [facility] FOR RECORDS PERTAINING TO PATIENTS WHO ARE [...] BE BASED ON THE PRIMARY CLINICAL RECORDS. [employer] [facility]. provides no warranty or guarantee of the accuracy or completeness of information in this document.
--- NOTE | 2024-12-21 07:30 | CA_ITS ---
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 Interpretive Statements Summary of the findings: Right leg: ALONA= 1.05; TBI= 0.80. Doppler waveforms demonstrate monophasic flow at the posterior tibial and dorsalis pedis arteries. Left leg: ALONA= 0.72; TBI= 0.61. Doppler waveforms demonstrate monophasic flow at the posterior tibial and dorsalis pedis arteries. Segmental pressures: Segmental pressures are normal on the right and indicate significant left sided inflow disease. Pulse volume recordings: PVRs at the high thigh, below knee, and ankle levels show left sided dampened waveforms. Post exercise right ALONA is mildly reduced (0.86) and left ALONA is moderately reduced (0.58). Conclusion: Right and left ankle-brachial indices are suggestive of normal right-sided and reduced left-sided overall arterial flow at rest. Toe-brachial indices are suggestive of left-sided PAD. Segmental pressures indicate significant left sided inflow disease. Pulse volume recordings indicate reduced left sided resting arterial flow. The study shows evidence of left sided inflow PAD with reduced overall arterial flow in the left leg at rest and with exercise. Normal resting and mildly reduced right sided flow with exercise. Electronically Signed On 12-23-2024 8:57:28 EDT by ALCIDES ETIENNE M.D.
--- NOTE | 2024-12-21 08:30 | CA_ITS ---
Patient Name: MEDARDO CORONA MR#: [id number] : 1950 Exam Date: 12/21/2024 Ordering Doctor: DR GRACY QUINTERO M.D. ECHOCARDIOGRAM REPORT PROCEDURE: CA ECHO DOPPLER COMPLETE INDICATIONS: Acute on chronic heart failure COMPARISON: None. DESCRIPTION: COMPLETE ECHOCARDIOGRAM Real-time transthoracic echocardiography with 2D, M-mode, spectral and color flow Doppler performed. QUALITY: Technical quality was good. LEFT VENTRICLE: Normal chamber size. Mild to moderate concentric left ventricular hypertrophy. Global left ventricular systolic function is normal. LV EF: Estimated left ventricular ejection fraction is 55-60%. DIASTOLIC: Diastolic function is indeterminate. ATRIAL SEPTUM: LEFT ATRIUM: Mild dilatation. RIGHT ATRIUM: Normal chamber size. RIGHT VENTRICLE: Normal chamber size. Normal right ventricular systolic function. TRICUSPID VALVE: Normal mobility and thickness. No stenosis with mild regurgitation. No evidence of pulmonary hypertension. RVSP 31 mmHg. MITRAL VALVE: Normal mobility and thickness. No evidence of mitral valve stenosis. There is no mitral annular calcification. Trivial mitral regurgitation. AORTIC VALVE: Normal trileaflet appearance. No visible sclerosis. Normal leaflet mobility. No evidence of aortic valve stenosis. No aortic regurgitation. AORTIC ROOT: Normal diameter and appearance, measuring 3.5 cm. The ascending aorta is normal in size measuring 3.4 cm. PULMONIC VALVE: Normal thickness and mobility. No stenosis. Trivial regurgitation. PERICARDIUM: No evidence of pericardial effusion. IVC: Collapses with inspiration. Normal size. PLEURA: CONCLUSION: 1. Mild to moderate concentric left ventricular hypertrophy with normal systolic function. Estimated LVEF is 55 to 60%. 2. Normal right ventricular size and systolic function. 3. Mild tricuspid regurgitation. 4. Normal right-sided pressures. Adult Echocardiography Procedure Report Left Ventricle LVEDD (3.7 - 5.6 cm): 4.43 cm LVESD (2.2 - 4.0 cm): 3.58 cm LVIVS thickness (0.6 - 1.2 cm): 1.36 cm LVPW thickness (0.5 - 1.0 cm): 1.20 cm e': 0.08 m/s E - e': 6.71 LVOT Max Gradient: 1.79 mm[Hg] LVOT Area (cm2): 0.67 m/s Peak Velocity (LVOT): 0.67 m/s Mean Velocity (LVOT): 0.46 m/s LVOT Diameter 2.09 cm Left Ventricular Ejection Fraction: 55-60 % Left Atrium LA Volume Index (2D A2C): 35.44 ml/m2 Left Atrium Systolic Dimension: 3.59 cm Mitral Valve MV E to A Ratio: 0.77 Mitral Valve A-Wave Peak Velocity: 0.73 m/s Mitral Valve E-Wave Peak Velocity: 0.56 m/s Right Ventricle RV Internal Diastolic Dimension: 3.24 cm Aorta AO Root Diam: 3.49 cm Ascending Ao Diam: 3.43 cm Aortic Valve AoV Area (Peak Willi): 2.44 cm2, 2.44 cm2 AoV Area (VTI): 3.01 cm2, 3.01 cm2 Peak Velocity(Antegrade Flow): 0.94 m/s Peak Gradient(Antegrade Flow): 3.55 mm[Hg] Mean Velocity(Antegrade Flow): 0.58 m/s Mean Gradient(Antegrade Flow): 1.63 mm[Hg] Velocity Time Integral: 18.67 cm Tricuspid Valve Peak Velocity (Regurgitant Flow): 2.56 m/s Pulmonic Valve Mean Gradient: 1.06 mm[Hg] Mean Velocity: 0.47 m/s Peak Velocity: 0.68 m/s, 0.74 m/s Peak Gradient: 2.19 mm[Hg], 1.86 mm[Hg] Right Atrium Right Atrium Systolic Pressure: 25.67 ml, 25.67 ml Dictated by: Jaquan Cardozo M.D. on 12/21/2024 at 18:12 Approved by: Jaquan Cardozo M.D. on 12/21/2024 at 18:16
== END 2024-12-21 07:09 | disposition home or self-care (01) ==
LOC: CARD 07:08
PROVIDERS: Visit Provider Internal Medicine Interventional Cardiology
DX: I73.9 Peripheral vascular disease, unspecified (principal); I50.23 Acute on chronic systolic (congestive) heart failure
CPT/HCPCS: 93306; 93924